=== PATIENT | female | born 1995 | race Caucasian/White ===

== ENCOUNTER 2023-09-06 17:18 | Observation (INO) | payer OTHER, SELFPAY ==
[2023-09-06 17:36] VITALS: BP 114/64
[2023-09-06 18:01] LABS: Urine Albumin Negative (Neg - Trace); Urine Bilirubin Negative (Negative); Urine Character Clear (Clear); Urine Color Yellow; Urine Glucose 1+ (Negative); Urine Ketone Trace (Negative); Urine Leukocyte Trace (Negative); Urine Nitrite Negative (Negative); Urine Occult Blood Trace (Negative); Urine Specific Gravity 1.015 (<1.030); Urine Urobilinogen Negative (Neg - 1+)
[2023-09-06 18:07] LABS: Urine Red Blood Cell 0-2 /HPF (0-2); Urine Squamous Cell >30 /LPF (Few)
== END 2023-09-06 18:29 | disposition home or self-care (01) ==
LOC: LDRP 17:18
PROVIDERS: ADMITTING PHYSICIAN Obstetrics & Gynecology; FAMILY PHYSICIAN Obstetrics & Gynecology
DX: O47.03 False labor before 37 completed weeks of gestation, third trimester (principal); Z3A.33 33 weeks gestation of pregnancy; Q21.12 Patent foramen ovale; O26.643 Intrahepatic cholestasis of pregnancy, third trimester; K83.1 Obstruction of bile duct; E86.0 Dehydration; Z91.018 Allergy to other foods; Z91.010 Allergy to peanuts; Z91.013 Allergy to seafood
CPT/HCPCS: 81003; 81015; G0378

== ENCOUNTER → 2023-09-11 09:26 | Outpatient (REF) | payer OTHER, SELFPAY | LOC: PNTC 09:26 | PROVIDERS: ATTENDING PHYSICIAN Obstetrics & Gynecology | DX: O26.649 Intrahepatic cholestasis of pregnancy, unspecified trimester (principal) | CPT/HCPCS: 59025; 76815 ==

== ENCOUNTER 2023-09-15 14:27 | Observation (INO) | payer OTHER, SELFPAY ==
[2023-09-15 11:51] VITALS: BP 131/73
[2023-09-15 12:40] VITALS: BMI 36.1
[2023-09-15 12:54] LABS: % Basophils 0.2 % (0-2); % Eosinophils 0.5 % (0-6); % Immature Granulocytes 0.8 % (0-0.5); % Lymphocytes 17.8 % (20.5-51.1); % Monocytes 9.5 % (1.7-9.3); % Neutrophils 71.2 % (42.2-75.2); Absolute Eosinophils 0.1 10^3/uL (0-0.7); Absolute Immature Granulocytes 0.1 10^3/uL (0-0.05); Absolute Lymphocytes 2.3 10^3/uL (1.2-3.4); Absolute Monocytes 1.2 10^3/uL (0.1-0.6); Absolute Neutrophils 9.3 10^3/uL (1.4-6.5); Hematocrit 31.9 % (37.0-47.0); Hemoglobin 10.4 g/dL (12.0-16.0); Mean Corp Hgb Conc. 32.6 g/dL (33.0-37.0); Mean Corpuscular Hgb 28.7 pg (27.0-31.0); Mean Corpuscular Volume 88.1 fL (81.0-99.0); Mean Platelet Volume 10.8 fL (7.4-10.4); Nucleated Red Blood Cells % 0 %; Platelet Count 347 10^3/uL (130-400); Red Blood Cell Count 3.62 10^6/uL (4.20-5.40); Red Cell Dist. Width 13.8 % (11.5-14.5)
[2023-09-15 13:00] VITALS: BP 105/69
[2023-09-15 13:05] LABS: ALT (SGPT) 27 U/L (0-35); AST (SGOT) 21 U/L (14-36); Albumin 3.5 g/dl (3.5-5.0); Alkaline Phosphatase 144 U/L (38-126); Blood Urea Nitrogen 5 mg/dl (7-17); Carbon Dioxide 22 mmol/L (22-30); Chloride 106 mmol/L (98-107); Estimated Creatinine Clearance > 125 ml/min; Glucose 89 mg/dl (70-99); Potassium 4.2 mmol/L (3.5-5.1); Sodium 133 mmol/L (135-145); Total Bilirubin 0.3 mg/dl (0.2-1.3); Total Protein 6.3 g/dl (6.3-8.2); eGFR > 60.00
--- NOTE | 2023-09-15 13:05 | ED.GENMED ---
History of Present Illness
General
Chief Complaint: Breathing Problem
Source: patient
Time Seen by Provider: 09/15/23 13:02
Travel History
Have you had any contact with someone who has COVID-19?: No
Do you have any symptoms of coronavirus? Fever > 100 degrees, chills, cough, shortness of breath, sore throat, loss of taste or smell, muscle aches, or headache?: No
History of Present Illness
History of Present Illness:
28-year-old female who is 35 weeks presents to the emergency room at the advice of her rehabilitation team lead, Dr. Khan. 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
noted increased edema in her lower extremities. Coworkers felt the patient looked pale. Patient's mom picked her up from work and then noted she seemed blotchy and red. Currently the patient is feeling much better. She is not short of breath.
She denies any pain with deep inspiration. Patient notes she has been experiencing cholestasis of .
Past History
Past History
ED Past Medical History: None
ED Past Surgical History: Tonsilectomy
Social History
Tobacco: Non-smoker
Alcohol: Occasional
Drug: None
Personal:
Living: with family
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
Phy Exam
Physical Exam
Physical Exam:
General: Awake, Alert, Oriented X3. No acute distress.
Vitals: unremarkable
Head: Atraumatic
Eyes: Pupils equal, EOMI
Throat: Airway intact, no exudates
Neck: Trachea midline
Lungs: Clear and equal b/l
Heart: Regular rate, no murmurs
Abd: Soft, Nontender, No pulsatile mass
Neuro: Nonfocal
Skin: Warm, dry, no rash
Extremities: pulses equal b/l, 1+ edema
Course
Orders/Labs/Results
Orders:
Orders
09/15/23 11:57
EKG [Electrocardiogram (*1)] Urgent
Reason for Study: Shortness of Breath
EKG- Treatment ONCE
09/15/23 12:44
Complete Blood Count/With Diff Urgent
Comprehensive Metabolic Panel Urgent
Troponin I Urgent
Uric Acid Urgent
Comment: URIC ACID ADDED ON BY FLOO 1PM 09-15-23
09/15/23 13:05
Add On- LAB Urgent
Tests Added?: uric acid
09/15/23 13:27
Urinalysis Urgent
Date Specimen was Collected: 09/15/23
Time Specimen was Collected: 13:11
09/15/23 13:30
Heart Tones ONCE
Abnormal Lab Results
09/15/23
12:44
WBC 13.0 H 10^3/uL
(4.8-10.8)
RBC 3.62 L 10^6/uL
(4.20-5.40)
Hgb 10.4 L g/dL
(12.0-16.0)
Hct 31.9 L %
(37.0-47.0)
MCHC 32.6 L g/dL
(33.0-37.0)
MPV 10.8 H fL
(7.4-10.4)
Abs Immat Gran (auto) 0.1 H 10^3/uL
(0-0.05)
Absolute Neuts (auto) 9.3 H 10^3/uL
(1.4-6.5)
Absolute Monos (auto) 1.2 H 10^3/uL
(0.1-0.6)
Immature Gran % 0.8 H %
(0-0.5)
Lymphocytes % 17.8 L %
(20.5-51.1)
Monocytes % 9.5 H %
(1.7-9.3)
Sodium 133 L mmol/L
(135-145)
BUN 5 L mg/dl
(7-17)
Creatinine 0.4 L mg/dL
(0.6-1.0)
Alkaline Phosphatase 144 H U/L
(38-126)
09/15/23 12:44
09/15/23 12:44
Vital Signs
Initial and Last Documented VS:
Initial Vital Signs
Temp Pulse Resp BP Pulse Ox
98.1 F 99 20 131/73 99
09/15/23 11:51 09/15/23 11:51 09/15/23 11:51 09/15/23 11:51 09/15/23 11:51
Last Documented Vital Signs
Temp Pulse Resp BP Pulse Ox
97.5 F 92 18 107/60 97
09/15/23 14:33 09/15/23 14:33 09/15/23 14:33 09/15/23 14:33 09/15/23 14:00
MDM/Problems Addressed
Differential Diagnosis Includes:
Preeclampsia shortness of breath , anemia, PE,
MDM/Problems Addressed:
Labs are all reassuring. Initial BP was elevated but repeat is normal. heart tones are normal. Case discussed with Dr. Fried. Patient will go to L&D for nonstress test.
*Pulse Oximetry
Patient hypoxic: no
*EKG
Interpreted by ED Provider?: Yes
Interpretation: normal
Heart Rate: 93
Rate: normal
Rhythm: sinus
[place]: normal axis
Interval: normal interval
QRS Pattern: normal QRS
Ischemia: no ischemia
*Rouge Presser Interpretation
Rate: normal
Interpretation: normal
Heart Rate: 93
Rhythm: sinus
*Critical Care Note
Total Time (30-74mins, 75-104mins- exclusive of procedures): Not Applicable
ED Attending Note
-
Portions of this chart may have been created with voice recognition software.� Occasional wrong word or��sound alike� substitutions may have occurred due to the inherent limitations of voice recognition software.
Discharge Plan
Departure
Patient Disposition: LDRP
Date of Disposition: 09/15/23
Time of Disposition: 14:11
Presentation/result/management discussed w/ accepting MD/DO: Hospitalist
Condition: Good
Discharge Problem:
Dyspnea
Interventions
Interventions:
*Risk Screen - Suicide Last Done: 09/15/23 11:51
*General Assessment Last Done: 09/15/23 11:51
*Neglect/Abuse Screening Last Done: 09/15/23 11:51
ED- Fall Risk Assessment Last Done: 09/15/23 12:40
*ED COVID-19 Vaccine History Last Done: 09/15/23 12:40
*Nursing Disposition Last Done: 09/15/23 14:27
ED- Cardiac Assessment Last Done: 09/15/23 12:40
ED- Pulmonary Assessment Last Done: 09/15/23 12:40
Discharge Date and Time
Discharge Date/Time: 09/15/23 14:28
[2023-09-15 13:17] LABS: Troponin I < 0.012 ng/ml
--- NOTE | 2023-09-15 13:23 | EDRN ---
heart tones checked and HR 135
[2023-09-15 13:27] VITALS: BP 114/72
[2023-09-15 13:40] LABS: Urine Albumin Negative (Neg - Trace); Urine Bilirubin Negative (Negative); Urine Character Clear (Clear); Urine Color Yellow; Urine Glucose Negative (Negative); Urine Ketone Negative (Negative); Urine Leukocyte Negative (Negative); Urine Nitrite Negative (Negative); Urine Occult Blood Negative (Negative); Urine Specific Gravity 1.015 (<1.030); Urine Urobilinogen Negative (Neg - 1+); Urine pH 6.5 (5.0-9.0)
[2023-09-15 13:57] LABS: Uric Acid 3.5 mg/dl (2.5-6.2)
[2023-09-15 14:00] VITALS: BP 105/68
[2023-09-15 14:33] VITALS: BP 107/60
== END 2023-09-15 15:22 | disposition home or self-care (01) ==
LOC: LDRP 14:27
PROVIDERS: Student in an Organized Health Care Education/Training Program; ADMITTING PHYSICIAN Obstetrics & Gynecology; EMERGENCY PHYSICIAN Emergency Medicine
DX: R06.00 Dyspnea, unspecified (principal); R06.02 Shortness of breath; Z3A.35 35 weeks gestation of pregnancy; O26.813 Pregnancy related exhaustion and fatigue, third trimester; O14.03 Mild to moderate pre-eclampsia, third trimester; Q21.12 Patent foramen ovale; O26.643 Intrahepatic cholestasis of pregnancy, third trimester; Z91.018 Allergy to other foods; Z91.010 Allergy to peanuts; Z91.013 Allergy to seafood
CPT/HCPCS: 80053; 81003; 84484; 84550; 85025; 93005; 99285; G0378

== ENCOUNTER 2023-09-17 09:28 | Inpatient (IN) | payer OTHER, SELFPAY ==
[2023-09-17 09:41] VITALS: BP 127/67; BMI 36.1
[2023-09-17] MEDS: PENICILLIN 110 UNITS IV (10:40)
[2023-09-17] MEDS: CELESTONE SOLUSPAN 2 MG IM ×2 (10:43→23:03)
[2023-09-17] MEDS: LR 1000 IV ×2 (11:06→16:24)
[2023-09-17 11:12] LABS: % Basophils 0.3 % (0-2); % Eosinophils 0.4 % (0-6); % Immature Granulocytes 0.8 % (0-0.5); % Lymphocytes 14.8 % (20.5-51.1); % Monocytes 7.8 % (1.7-9.3); % Neutrophils 75.9 % (42.2-75.2); Absolute Basophils 0.1 10^3/uL (0-0.2); Absolute Eosinophils 0.1 10^3/uL (0-0.7); Absolute Immature Granulocytes 0.1 10^3/uL (0-0.05); Absolute Lymphocytes 2.1 10^3/uL (1.2-3.4); Absolute Monocytes 1.1 10^3/uL (0.1-0.6); Hemoglobin 11.2 g/dL (12.0-16.0); Mean Corp Hgb Conc. 32.9 g/dL (33.0-37.0); Mean Corpuscular Hgb 28.6 pg (27.0-31.0); Mean Platelet Volume 11.3 fL (7.4-10.4); Nucleated Red Blood Cells % 0 %; Platelet Count 333 10^3/uL (130-400); Red Blood Cell Count 3.91 10^6/uL (4.20-5.40); Red Cell Dist. Width 13.9 % (11.5-14.5); White Blood Cell Count 14.5 10^3/uL (4.8-10.8)
[2023-09-17] MEDS: CYTOTEC 50 MICROGRAM VAG (11:29)
[2023-09-17] MEDS: PENICILLIN 55 UNITS IV ×3 (14:15→22:10)
--- NOTE | 2023-09-17 18:19 | CON.NEO ---
Consultation
-
Date/Time Consultation Requested: 09/17 899
Date/Time Consultation Performed: 09/17 1400
Requesting Provider: dr Herron
Performing Provider: dr villegas
Reason for Consultation: labour
Consultation - Neonatology
Maternal Labs
Blood Type: A Positive
Antibody Screen: Negative
RPR: Nonreactive
Rubella: Immune
Hep B S Ag: Negative
Hep C: Negative
HIV: Nonreactive
Group B Strep: Unknown
Chlamydia/GC: Negative
Consult
Mom 28 year old , unremarkable pregnacy uptil now except for cholestasis, previous induced at 37 wks for above reason
admitted this am with SROM at 2100 09/16.
she is 35 3/7 wks today
has been started on PCN and received one dose of Betametasone , no maternal fever or other concerns noted at this time.
Points discussed at consult:
- Management at delivery including the possibility of CPAP/intubation/surfactant discussed
- Respiratory: RDS possibility with possibility of worsening for 24-48 hrs, management including CPAP/surfactant/ventilator support may be required
- Nutrition: Hypoglycemia, need for IV fluids, gradual feed advance, Gavage feeding, importance of colostrum feeding, initiation of expression of colostrum within 3-4 hours, availability of donor milk, safety fo donor milk etc. were discussed.
- Procedures: Intubation, CPAP, IV placement, blood tests, umbilical arterial or venous lines, gavage feedings were discussed
- CVS: possibility of PDA not discussed in detail at this time
- TOOL REPAIR TECHNICIAN: Rare possibility of IVH and need for head US, grading of IVH and buttermaker effects of Grade III/IV although extremely rare at >32 weeks were discussed
- Jaundice possibility and need for phototherapy discussed
- Family Centered Care: Discussed FCC with emphasis on parental participation during sign off and during management rounds and is encouraged. Availability of hernán eyes camera also discussed
- COVID-19: Visitation policy, modifications related to COVID-19, ever changing guidelines were discussed
Mom and Grand mother were given the opportunity to ask questions throughout and open invitation to call if any questions come as they absorb all the information given so far.
discussed the need of donor Breast milk, mom wants to breast eed and will start hand expressing to have some avilibility at .
Face to Face Time
Total Twtn-lr-Kkam Time (in Minutes): 30 min
Attending Loan Teller: Cleopatra Villegas MD
Loan Teller
[2023-09-17] MEDS: PITOCIN 30 UNITS/NSS 500 ML IV (18:30)
[2023-09-17] MEDS: SUBLIMAZE 100 MCG EPIDURAL (19:52)
[2023-09-17] MEDS: FENTANYL/BUPIVACAINE 100 EPIDURAL (19:53)
[2023-09-18] MEDS: PENICILLIN 55 UNITS IV ×2 (02:10→06:16)
[2023-09-18] MEDS: FENTANYL/BUPIVACAINE 100 EPIDURAL (03:32)
[2023-09-18] MEDS: PENICILLIN IV (12:27)
[2023-09-18] MEDS: MOTRIN 600 MG PO ×2 (13:43→19:46)
[2023-09-19] MEDS: MOTRIN 600 MG PO ×4 (03:45→21:52)
[2023-09-19 04:02] LABS: Hematocrit 27.6 % (37.0-47.0); Hemoglobin 9.2 g/dL (12.0-16.0)
[2023-09-19] MEDS: PROTONIX 40 MG PO (07:30)
[2023-09-19] MEDS: PRENATAL PLUS 1 TABLET PO (07:30)
[2023-09-19] MEDS: HYDROCORTISONE 2.5% OINTMENT 1 APPLIC TOPICAL ×2 (09:22→22:04)
[2023-09-19] MEDS: TYLENOL 650 MG PO ×2 (09:36→15:45)
[2023-09-19] MEDS: SENOKOT-S 1 TABLET PO (09:37)
[2023-09-19 13:41] LABS: Syphilis/T. pallidum Ab Reflex Negative (Negative)
[2023-09-19] MEDS: FEOSOL 325 MG PO ×2 (15:44→21:53)
[2023-09-20] MEDS: MOTRIN 600 MG PO (08:50)
[2023-09-20] MEDS: FEOSOL 325 MG PO (08:50)
[2023-09-20] MEDS: PRENATAL PLUS 1 TABLET PO (08:50)
[2023-09-20] MEDS: SENOKOT-S 1 TABLET PO (08:50)
[2023-09-20] MEDS: PROTONIX PO (08:57)
== END 2023-09-20 18:33 | disposition home or self-care (01) | DRG 807 ==
LOC: LDRP 09:28
PROVIDERS: Obstetrics & Gynecology; ADMITTING PHYSICIAN Obstetrics & Gynecology
PROC: 3E0E3GC Introduction of Other Therapeutic Substance into Products of Conception, Percutaneous Approach (ICD-10-PCS; 2023-09-18)
PROC: 10E0XZZ Delivery of Products of Conception, External Approach (ICD-10-PCS; 2023-09-18)
DX: O60.14X0 Preterm labor third trimester with preterm delivery third trimester, not applicable or unspecified (principal); Z37.0 Single live birth; Z3A.35 35 weeks gestation of pregnancy; O69.81X0 Labor and delivery complicated by cord around neck, without compression, not applicable or unspecified
CPT/HCPCS: 88307; 85014; 85018; 85025; 86780; 86850; 86900; 86901; 87070

== ENCOUNTER → 2023-11-20 14:03 | Outpatient (REF) | payer OTHER, SELFPAY | LOC: WDC 14:03 | PROVIDERS: ATTENDING PHYSICIAN Nurse Practitioner Family | DX: N61.1 Abscess of the breast and nipple (principal) | CPT/HCPCS: 76642 ==

== ENCOUNTER → 2024-02-19 16:29 | Outpatient (REF) | payer OTHER, SELFPAY | LOC: RAD 16:29 | PROVIDERS: ATTENDING PHYSICIAN Nurse Practitioner Family | DX: N92.0 Excessive and frequent menstruation with regular cycle (principal) | CPT/HCPCS: 76830; 76856 ==

== ENCOUNTER 2024-05-25 11:48 | Emergency (ER) | payer OTHER, SELFPAY ==
[2024-05-25 11:51] VITALS: BP 126/81
[2024-05-25] MEDS: OMNIPAQUE 50 ML PO (13:45)
--- NOTE | 2024-05-25 13:48 | ED.GENMED ---
History of Present Illness
<Debby Begum PA-C - Last Filed: 05/27/24 19:03>
General
Chief Complaint: Bowel Problem
Source: patient
Exam Limitations: none
Time Seen by Provider: 05/25/24 13:13
Nursing documentation reviewed up to this point in time: agreed with
History of Present Illness
History of Present Illness:
29 y/o F with h/o hypothyroid
here with constipation x 17 days
says she normally moves bowels every few days but went 8 days the first stint, despite trying mrialax, doculax, colace, and mag citrate; andry did move bowels after enema and then went 7 days and has not had another BM desptie doing miralax
daily
she saw PCP who ordered xray which showed consitpation
she also saw [facility] and is scheudled to have colonosocopy in 5 days
but in the meantime, she developed pretty intense pain at work today in lower abdomen and had been instructed to come to the ER if she had pain
pain is better
no fever/chills/voimting/nausea/diarrhea/bleeding
last dose miralax this morning
doesn't feel rectal pressure
no recent change to diet
no previous abd surgery
Scheduled to have a hysterectomy because of adenomyosis and endometriosis
Thyroid normal, checked last week
Past History
<Debby Begum PA-C - Last Filed: 05/27/24 19:03>
Past History
ED Past Medical History: Other (adenomyosis, endometriosis)
ED Past Surgical History: Tonsilectomy
Social History
Tobacco: Non-smoker
Alcohol: Occasional
Drug: None
Personal:
Living: with family
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
Review of Systems
<Debby Begum PA-C - Last Filed: 05/27/24 19:03>
Review of Systems
Allergies reviewed?: Yes
All Other Systems: Not applicable
Phy Exam
<Debby Begum PA-C - Last Filed: 05/27/24 19:03>
Physical Exam
Physical Exam:
GENERAL: Alert , in no apparent distress
EYE: pupils equal and reactive
NECK: Supple
ENT: o/p clr, mmm.
CARDIAC: Regular rate and rhythm
LUNGS: Clear breath sounds bilaterally, no acute respiratory distress, no wheezes/rales/rhonchi
ABDOMEN: Soft, mild lower abd tenderness;, no r/g, no cvat, normal bowel sounds
NEUROLOGICAL: Alert and oriented, no focal neuro deficits
SKIN: Warm and dry, skin intact.
MUSCULOSKELETAL: No edema, well perfused.
PSYCH: Normal and appropriate interaction.
Course
<Debby Begum PA-C - Last Filed: 05/27/24 19:03>
Orders/Labs/Results
Orders:
Orders
05/25/24 13:38
Iohexol [Omnipaque] 50 ml .ROUTE .[facility]
05/25/24 13:39
Iohexol [Omnipaque] See Protocol PO NOW STA
05/25/24 13:40
CT Abd/pel W Iv And Oral Contr Urgent
Comment:
Reason For Exam: severe constipation
Test Result ONCE
05/25/24 13:51
Complete Blood Count/With Diff Urgent
Comprehensive Metabolic Panel Urgent
HCG, Serum Qualitative Screen Urgent
Lipase Urgent
Abnormal Lab Results
05/25/24
13:51
RBC 4.14 L 10^6/uL
(4.20-5.40)
Absolute Monos (auto) 0.7 H 10^3/uL
(0.1-0.6)
05/25/24 13:51
05/25/24 13:51
Vital Signs
Initial and Last Documented VS:
Initial Vital Signs
Temp Pulse Resp BP Pulse Ox
98.0 F 77 20 126/81 99
05/25/24 11:51 05/25/24 11:51 05/25/24 11:51 05/25/24 11:51 05/25/24 11:51
Last Documented Vital Signs
Temp Pulse Resp BP Pulse Ox
98.0 F 69 14 104/61 98
05/25/24 11:51 05/25/24 17:46 05/25/24 17:46 05/25/24 17:16 05/25/24 17:46
<Ruddy Jimenez PA-C - Last Filed: 05/25/24 17:28>
Orders/Labs/Results
Orders:
Orders
05/25/24 13:38
Iohexol [Omnipaque] 50 ml .ROUTE .[facility]
05/25/24 13:39
Iohexol [Omnipaque] See Protocol PO NOW STA
05/25/24 13:40
CT Abd/pel W Iv And Oral Contr Urgent
Comment:
Reason For Exam: severe constipation
Test Result ONCE
05/25/24 13:51
Complete Blood Count/With Diff Urgent
Comprehensive Metabolic Panel Urgent
HCG, Serum Qualitative Screen Urgent
Lipase Urgent
Abnormal Lab Results
05/25/24
13:51
RBC 4.14 L 10^6/uL
(4.20-5.40)
Absolute Monos (auto) 0.7 H 10^3/uL
(0.1-0.6)
05/25/24 13:51
05/25/24 13:51
Vital Signs
Initial and Last Documented VS:
Initial Vital Signs
Temp Pulse Resp BP Pulse Ox
98.0 F 77 20 126/81 99
05/25/24 11:51 05/25/24 11:51 05/25/24 11:51 05/25/24 11:51 05/25/24 11:51
Last Documented Vital Signs
Temp Pulse Resp BP Pulse Ox
98.0 F 69 14 104/61 98
05/25/24 11:51 05/25/24 17:46 05/25/24 17:46 05/25/24 17:16 05/25/24 17:46
<Debby Begum PA-C - Last Filed: 05/27/24 19:03>
MDM/Problems Addressed
Differential Diagnosis Includes:
constipation, bowel obstruction, colitis
MDM/Problems Addressed:
29 y/o F
adenomyosis, endometriosis
no BM in 7 days
has had consitpaiton x 17days but had bm in the middle
has tried miralax daiy for the pat week with no bm
she doesnt feel rectal rpessure
no nausea/vomiting
but got pain today that was intense
it resolved and pt feels better now but is mnimally sore
no fever/chills
pt is here for ct scan saying she was told if she got severe pain to come to the ER by the GI doctor
mild tenderness lower abd
has had tsh checked last week normal
labs normal
ct penidng
signed out to balaji sheikh at 1600
<Ruddy Jimenez PA-C - Last Filed: 05/25/24 17:28>
*Critical Care Note
Total Time (30-74mins, 75-104mins- exclusive of procedures): Not Applicable
<Ruddy Jimenez PA-C - Last Filed: 05/25/24 17:28>
Update Note
Update Note:
5:27 PM. Assumed care of patient upon signout pending CT scan of abdomen. CT shows large amount of stool throughout the colon to suggest constipation.
Patient reexamined appears nontoxic vital signs remained stable resting comfortably. Had discussion with patient regarding CAT scan results. Recommended increasing to MiraLAX twice a day. Was prescribed. She will follow-up with GI. No
indication for admission
ED Attending Note
<Debby Begum PA-C - Last Filed: 05/27/24 19:03>
-
Portions of this chart may have been created with voice recognition software.� Occasional wrong word or��sound alike� substitutions may have occurred due to the inherent limitations of voice recognition software.
Discharge Plan
Departure
Patient Disposition: Home (Routine Discharge)
Date of Disposition: 05/25/24
Time of Disposition: 17:22
Patient with high blood pressure during this ER visit?: No
Condition: Fair
Covid-19: Not Applicable
Discharge Problem:
Constipation
Instructions: Constipation, Adult (DC)
Prescriptions:
New
dicyclomine 20 mg tablet
20 mg PO TID PRN (Reason: pain) Qty: 15 0RF
No Action
Vitamin Tablet
1 tab PO DAILY
omeprazole 20 mg Capsule,Delayed Release(Dr/Ec)
20 mg PO DAILY
ferrous sulfate [FeroSul] 325 mg (65 mg iron) Tablet
325 mg PO DAILY Qty: 0 0RF
ibuprofen 200 mg capsule
600 mg PO Q6HPRN PRN (Reason: moderate pain/cramps) Qty: 0 0RF
acetaminophen 325 mg Tablet
650 mg PO Q4HPRN PRN (Reason: mild pain) Qty: 0 0RF
sennosides-docusate sodium [Stool Softener-Stimulant Laxat] 8.6-50 mg Tablet
1 tab PO DAILYPRN PRN (Reason: constipation) Qty: 0 0RF
Referrals:
Shelley Ch, [Family Provider] - Follow up in 2-3 days
Activity Restrictions/Additional Instructions:
FOLLOW UP WITH YOUR GI DOCTOR
USE BENTYL 20 MG 3 TIMES A DAY NEEDED FOR PAIN RELATED TO CONSTIPATION
USE MIRALAX TWICE A DAY TO SEE IF THIS HELPS GIVE YOU RESULTS
ALSO TRY AN ENEMA
RETURN FOR ANY CONCERNS.
Interventions
Interventions:
*Risk Screen - Suicide Last Done: 05/25/24 13:58
*General Assessment Last Done: 05/25/24 11:51
*Neglect/Abuse Screening Last Done: 05/25/24 13:58
ED- Fall Risk Assessment Last Done: 05/25/24 13:58
*ED COVID-19 Vaccine History Last Done: 05/25/24 14:47
*Nursing Disposition Last Done: 05/25/24 17:46
GO-Yqzcfb-Pspjoxhwmt Assessment Last Done: 05/25/24 14:47
Discharge Date and Time
Discharge Date/Time: 05/25/24 17:47
Print Language: MICRONESIAN
[2024-05-25 14:01] LABS: % Basophils 0.6 % (0-2); % Immature Granulocytes 0.1 % (0-0.5); % Lymphocytes 36.3 % (20.5-51.1); % Monocytes 8.6 % (1.7-9.3); % Neutrophils 53.4 % (42.2-75.2); Absolute Basophils 0.1 10^3/uL (0-0.2); Absolute Eosinophils 0.1 10^3/uL (0-0.7); Absolute Lymphocytes 2.9 10^3/uL (1.2-3.4); Absolute Monocytes 0.7 10^3/uL (0.1-0.6); Absolute Neutrophils 4.3 10^3/uL (1.4-6.5); Hematocrit 37.1 % (37.0-47.0); Hemoglobin 12.4 g/dL (12.0-16.0); Mean Corp Hgb Conc. 33.4 g/dL (33.0-37.0); Mean Corpuscular Volume 89.6 fL (81.0-99.0); Mean Platelet Volume 10.4 fL (7.4-10.4); Nucleated Red Blood Cells % 0 %; Platelet Count 323 10^3/uL (130-400); Red Blood Cell Count 4.14 10^6/uL (4.20-5.40); Red Cell Dist. Width 13.2 % (11.5-14.5)
[2024-05-25 14:11] LABS: ALT (SGPT) 14 U/L (0-35); AST (SGOT) 19 U/L (14-36); Albumin 4.3 g/dl (3.5-5.0); Alkaline Phosphatase 40 U/L (38-126); Blood Urea Nitrogen 12 mg/dl (7-17); Calcium 9.6 mg/dl (8.4-10.2); Carbon Dioxide 27 mmol/L (22-30); Chloride 106 mmol/L (98-107); Glucose 89 mg/dl (70-99); Lipase 49 U/L (23-300); Sodium 141 mmol/L (135-145); Total Bilirubin 0.3 mg/dl (0.2-1.3); Total Protein 6.8 g/dl (6.3-8.2); eGFR > 60.00
[2024-05-25 14:13] LABS: HCG, Serum Qualitative Screen Negative
[2024-05-25 14:22] VITALS: BP 117/70
[2024-05-25 14:47] VITALS: BMI 30.5
[2024-05-25 15:00] VITALS: BP 104/69
[2024-05-25 17:16] VITALS: BP 104/61
== END 2024-05-25 17:47 | disposition home or self-care (01) ==
LOC: EMR 11:48
PROVIDERS: Physician Assistant; EMERGENCY PHYSICIAN Emergency Medicine; FAMILY PHYSICIAN Family Medicine
DX: K59.00 Constipation, unspecified (principal); E03.9 Hypothyroidism, unspecified
CPT/HCPCS: 99284; 74177; 80053; 83690; 84703; 85025; Q9967

== ENCOUNTER → 2024-07-22 13:19 | Outpatient (REF) | payer OTHER, SELFPAY | LOC: HWRAD 13:19 | PROVIDERS: ATTENDING PHYSICIAN Obstetrics & Gynecology Gynecologic Oncology; FAMILY PHYSICIAN Family Medicine; REFERRING PHYSICIAN Surgery | DX: Z15.01 Genetic susceptibility to malignant neoplasm of breast (principal); C44.92 Squamous cell carcinoma of skin, unspecified; N80.03 Adenomyosis of the uterus; Z15.02 Genetic susceptibility to malignant neoplasm of ovary | CPT/HCPCS: 76830; 76856 ==

== ENCOUNTER → 2024-08-15 10:44 | Outpatient (REF) | payer OTHER, SELFPAY | LOC: MRI 3T 10:44 | PROVIDERS: ATTENDING PHYSICIAN Obstetrics & Gynecology Gynecologic Oncology; FAMILY PHYSICIAN Family Medicine | DX: R92.2 Inconclusive mammogram (principal); Z15.01 Genetic susceptibility to malignant neoplasm of breast; C44.92 Squamous cell carcinoma of skin, unspecified; N80.03 Adenomyosis of the uterus; Z15.02 Genetic susceptibility to malignant neoplasm of ovary | CPT/HCPCS: 77049; A9585 ==

== ENCOUNTER 2024-08-21 06:15 | Day surgery (SDC) | payer OTHER, SELFPAY ==
[2024-08-01 10:00] VITALS: BMI 28.5
[2024-08-01 11:53] LABS: Hematocrit 40.4 % (37.0-47.0); Hemoglobin 13.2 g/dL (12.0-16.0); Mean Corp Hgb Conc. 32.7 g/dL (33.0-37.0); Mean Corpuscular Hgb 30.5 pg (27.0-31.0); Mean Corpuscular Volume 93.3 fL (81.0-99.0); Platelet Count 294 10^3/uL (130-400); Red Blood Cell Count 4.33 10^6/uL (4.20-5.40); Red Cell Dist. Width 12.7 % (11.5-14.5); White Blood Cell Count 4.2 10^3/uL (4.8-10.8)
[2024-08-01 12:03] LABS: ALT (SGPT) 18 U/L (0-35); AST (SGOT) 23 U/L (14-36); Albumin 4.3 g/dl (3.5-5.0); Alkaline Phosphatase 45 U/L (38-126); Blood Urea Nitrogen 12 mg/dl (7-17); Calcium 8.9 mg/dl (8.4-10.2); Carbon Dioxide 25 mmol/L (22-30); Chloride 104 mmol/L (98-107); Estimated Creatinine Clearance 93 ml/min; Glucose 76 mg/dl (70-99); Potassium 4.4 mmol/L (3.5-5.1); Sodium 139 mmol/L (135-145); Total Bilirubin 0.2 mg/dl (0.2-1.3); eGFR > 60.00
[2024-08-01 13:24] LABS: Absolute Neutrophils -Man Diff 1.9 10^3/uL (1.4-6.5); Atypical Lymphocytes 4 %; Band Neutrophils 2 % (0-3); Lymphocytes 28 % (20-51); Metamyelocytes 1 % (-); Monocytes 20 % (2-9); Segmented Neutrophils 45 % (42-75)
[2024-08-01 13:25] LABS: Normal RBC Morphology Yes; Platelets Checked Yes; Total Cells Counted 100
[2024-08-21] VITALS (8 sets, daily range): BP systolic 101–117; BP diastolic 57–73; BMI 28.5
[2024-08-21] MEDS: TYLENOL 1000 MG PO (06:32)
[2024-08-21] MEDS: NORMOSOL-R/PLASMALYTE-A 1000 IV (06:38)
[2024-08-21 07:01] LABS: HCG, Urine Qualitative Screen Negative
--- NOTE | 2024-08-21 07:40 | W.SUR.PREOP ---
Pre-Operative Surgical Note
-
I have examined this patient prior to the performance of the scheduled procedure.
The patient's condition is unchanged from the time of the current History and
Physical and the patient is able to undergo the scheduled procedure.
--- NOTE | 2024-08-21 07:41 | W.IMMPOSTOP ---
Surgical Immed Post Op Note
-
Primary Surgeon: PRAVEEN Cortes MD
Assisting Surgeon:
Pre-op Diagnosis: BRCA positive
Post-op Diagnosis: Same
Procedure Performed: Bilateral mastopexy
Anesthesia Type: GA
Specimen / Cultures: Right and left breast tissue
Estimated Blood Loss: 30cc
Complications: None
Operative Findings: As expected
--- NOTE | 2024-08-21 07:41 | OR.RPT ---
Operative Report
Operative Report
Date of surgery: 08/21/2024
Surgeon: PRAVEEN Cortes MD
Preoperative diagnosis: Genetic predisposition to breast cancer, BRCA
Postoperative diagnosis: Same
Procedure: Bilateral mastopexy as a staged procedure for nipple sparing mastectomy
Anesthesia: General
Complications: None
Specimens: Right and left breast tissue
EBL: 30 cc
Indication for procedure: Patient is a 21-year-old female with a known genetic predisposition to breast cancer. She is planning to undergo bilateral nipple sparing mastectomy with immediate D IEP flap reconstruction. She has 2 kids and had
involutional changes and ptosis. She also had notable asymmetry of her bilateral breast. As such in order to improve her reconstructive outcome, assist staged mastopexy prior to a nipple sparing mastectomy is appropriate in both medically
necessary. This will allow her to safely undergo nipple sparing mastectomy and immediate D IEP flap recon in the future. Risk the procedure were reviewed at length including compromise nipple areolar complex, wound healing differences, asymmetry,
hematoma, seroma, infection. She is not breast-feeding.
Procedure in detail: Patient was identified preoperatively and the surgical site was confirmed to be the bilateral breast. Bilateral vertical plantar mastopexies were drawn out to achieve symmetry. Her right was larger and more ptotic than the
left. All questions were answered consents were confirmed. Patient was taken back to the operative room placed supine on table. Anesthesia was induced and patient was prepped and draped in the usual sterile fashion. Timeout for patient safety
was performed was confirmed that preoperative antibiotics been administered and bilateral SCDs were in place. Procedure began with the injection 1% lidocaine with epinephrine in the proposed incisional sites. A 42 mm cookie cutter was then used to
lisseth the nipple areolar complex bilaterally. A 15 blade was used to then incised all the markings and the epithelization was performed with a 10 blade. On the right, a vertical pattern mastopexy was performed with removal of the inferior wedge of
tissue as well as undermining of the medial and lateral aspects of the inframammary fold. The pillars were sutured back in place with 2-0 Vicryl's followed by 3-0 Monocryl's. The nipple was transposed superiorly and inset with a series of 3-0 and
4 Monocryl. Superficial closure was performed for all Monocryl. The exact same procedure was then performed on the left with removal of less tissue given this was the smaller side. The inframammary fold was undermined tissue was removed
accordingly but the wedge was spared and transposed superiorly. The pillars were put back together with 2-0 Vicryl and the nipple was inset with 3-0 Monocryl. 3-0 Monocryl and 4-0 Monocryl were used to close the superficial skin. Patient
tolerated the procedure well, was performed out complication, all counts were correct at the end the case. The wounds were dressed with bacitracin, dry gauze, Tegaderm and a compressive bra was placed. Patient was extubated taken the PACU for
further care
[2024-08-21] MEDS: DILAUDID 0.5 MG IV ×2 (10:35→10:48)
[2024-08-21] MEDS: ZOFRAN 4 MG IV (11:05)
[2024-08-21] MEDS: ROXICODONE 5 MG PO (12:35)
== END 2024-08-21 12:55 | disposition home or self-care (01) ==
LOC: SDS 06:15
PROVIDERS: ATTENDING PHYSICIAN Surgery Plastic and Reconstructive Surgery; FAMILY PHYSICIAN Family Medicine
DX: N64.89 Other specified disorders of breast (principal); Z15.01 Genetic susceptibility to malignant neoplasm of breast
CPT/HCPCS: 19316; 88305; 36415; 80053; 81025; 85025; 93005

== ENCOUNTER → 2024-10-25 15:24 | Outpatient (REF) | payer OTHER, SELFPAY | LOC: RAD 15:24 | PROVIDERS: ATTENDING PHYSICIAN Surgery Plastic and Reconstructive Surgery; FAMILY PHYSICIAN Family Medicine | DX: Z15.01 Genetic susceptibility to malignant neoplasm of breast (principal) | CPT/HCPCS: 74174; Q9967 ==

== ENCOUNTER 2024-11-06 06:09 | Inpatient (IN) | payer OTHER, SELFPAY ==
[2024-10-30 08:58] LABS: Hematocrit 41.2 % (37.0-47.0); Hemoglobin 13.4 g/dL (12.0-16.0); Mean Corp Hgb Conc. 32.5 g/dL (33.0-37.0); Mean Corpuscular Hgb 29.7 pg (27.0-31.0); Mean Corpuscular Volume 91.4 fL (81.0-99.0); Mean Platelet Volume 10.6 fL (7.4-10.4); Platelet Count 352 10^3/uL (130-400); Red Blood Cell Count 4.51 10^6/uL (4.20-5.40); Red Cell Dist. Width 12.8 % (11.5-14.5); White Blood Cell Count 10.1 10^3/uL (4.8-10.8)
[2024-10-30 09:33] LABS: ALT (SGPT) 11 U/L (0-35); AST (SGOT) 16 U/L (14-36); Albumin 4.7 g/dl (3.5-5.0); Alkaline Phosphatase 56 U/L (38-126); Blood Urea Nitrogen 13 mg/dl (7-17); Carbon Dioxide 29 mmol/L (22-30); Chloride 104 mmol/L (98-107); Glucose 87 mg/dl (70-99); Potassium 4.5 mmol/L (3.5-5.1); Sodium 142 mmol/L (135-145); Total Bilirubin 0.8 mg/dl (0.2-1.3); Total Protein 7.2 g/dl (6.3-8.2); eGFR > 60.00
[2024-10-30 13:53] LABS: Prealbumin (Transthyretin) 25.5 mg/dl (17.6-36.0)
[2024-10-30 14:03] VITALS: BMI 28.6
[2024-10-30 14:05] LABS: Vitamin D, 25-OH*** 32.1 ng/mL (30-80)
[2024-11-06] VITALS (19 sets, daily range): BP systolic 93–109; BP diastolic 56–68; BMI 28.6; BMI 28.5
[2024-11-06] MEDS: LOVENOX 40 MG SC (06:44)
[2024-11-06] MEDS: NORMOSOL-R/PLASMALYTE-A 1000 IV (06:45)
[2024-11-06] MEDS: EMEND 40 MG PO (06:58)
--- NOTE | 2024-11-06 16:05 | OR.RPT ---
Operative Report
Operative Report
[facility]
[address]*[place] [address]

Patient Name: BONG RAMÍREZ
: 05/13/1975
Unit Number: [id number]
Age: 49/Gender: F
Patient
Location: ICU
Medical Records
Signed
Date of procedure: 11/06/24
Pre-Op DX: Genetic predisposition to breast cancer
Post-Op DX: Genetic predispostion to breast cancer
Procedures: Bilateral nipple-sparing mastectomies, bilateral abdominal wall repairs with mesh
Surgeon: Cliff
The patient is a 29-year-old female with 2 genetic mutation variants predisposing her to breast carcinoma who presents for bilateral prophylactic nipple sparing mastectomies and immediate reconstruction with bilateral DENIS flaps to be performed by
plastic surgery and repair of bilateral abdominal wall defects to be repaired by myself. Drs. Cortes and Yasmin will be performing the reconstructive and microvascular portions of the procedure. mastectomies and the abdominal wall repairs. I was
present throughout the entire case and functioned as primary surgeon for the mastectomies and abdominal wall repairs.
abdominal wall reconstruction as the Plastic Surgeons are not credentialed in General Surgery.
The patient presented to same-day surgical services and verified site and procedure. DVT and antibiotic prophylaxis were provided and Dr. Cortes had marked the incisions on the abdomen and breasts. She was taken to the operating room and in the
supine position, general anesthesia was induced. Smith catheter was placed using aseptic technique. Chest abdomen upper pelvic regions were prepped and draped in the usual sterile fashion. An appropriate timeout was performed by all staff members.
Plastic surgeons began harvesting the abdominal wall flaps and I began on the right sided mastectomy. Patient had undergone a previous breast mastopexy to deal with ptosis and the existing vertical incision was incised and extended laterally and
medially in the inframammary fold using the blade. The PlasmaBlade and lighted Invuity retractor were used for the dissection. Breast skin was elevated off the underlying breast tissue. Larger vessels were controlled with 3-0 silk tie or suture
ligature. Breast tissue was taken off the chest wall in a superior to inferior direction. Time out of body and orientation was provided for the pathologist. Hemostasis was verified and a moist pack was placed in the resection cavity. In the same
manner, the left side was dissected and removed as well. Then I continued to assist the plastic surgeons and once the flaps were harvested from the abdominal wall the anterior rectus fascia was approximated with skin luis a loosely approximating
the anterior rectus fascia. A portion of Phasix mesh was fashioned for both sides measuring 15 x 3 cm. This was placed in a subfascial location and secured to the fascia using interrupted [id number]-bk-[id number] 0 PDS suture. This was overrun with an O
Stratafix. Bilateral tap blocks were administered using 0.25% Marcaine plain. The rest of the closure is as described in the plastic surgery operative note.
The remaining soft tissue and skin closure was performed as described in the Plastic Surgical dictation.
([id number])
--- NOTE | 2024-11-06 16:21 | OR.RPT ---
Operative Report
Operative Report
Surgeon: Kiran Hoffman MD
Co-surgeon: Shahida Cortes MD
Cardiac Exercise Physiologist: Estefanía Coronado MD
Pre-op diagnosis:
1.� Genetic Predisposition to breast cancer
2. 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
Postop diagnosis: Same
Procedure:
1.� Bilateral breast reconstruction with DENIS flaps
2.� Bilateral internal mammary lymph node biopsy
3. Spy Angiography
Anesthesia: General
EBL: 150 cc
Specimens:
1.� Right internal mammary lymph node
2. Left internal mammary lymph node
Drains: 4 - 15 [place] Billy drains
Complications: none
Indications:
29-year-old female with a significant family history of breast cancer and genetic mutations that increase her lifetime risk of developing breast cancer.� She therefore desired prophylactic mastectomies. She first underwent staged mastopexy a few
months ago to allow for a nipple sparing mastectomy. Now she is ready for her bilateral mastectomies. She was interested in moving forward with autologous reconstruction. Given the anticipated bilateral DENIS flap breast reconstruction, I was asked
to be involved in her care given the complexity of the case and the need for a second surgeon to do this as safely and efficiently as possible.
Regarding bilateral free flap breast reconstruction,� she understood the nature of the surgery and all of the risk benefits alternatives were discussed at length.� Specific risks included flap failure or thrombosis, hematoma, seroma, poor wound
healing and compromise to the abdominal wall.� All questions were answered and consents were signed.
Operative findings:
The patient was identified in the preoperative area and consents were confirmed. The bilateral breasts were marked out as was the elliptical infraumbilical donor site. All questions were answered. She was brought to the operating room and placed
supine on the operative table.� General anesthesia was induced with an endotracheal tube. The arms were tucked bilaterally and a Smith catheter was placed.� Preoperative Lovenox and antibiotics were administered, and SCDs were placed.� The patient's
bilateral breasts and abdomen were prepped and draped in normal standard fashion using chlorhexidine prep.� A timeout for patient safety was performed.
As the breast surgeon, Dr. Coronado, was performing the mastectomies, Dr. Cortes and I were in the abdomen dissecting the abdominal flaps. I dissected the right abdominal flap for left breast reconstruction and Dr. Cortes worked on the left abdomen
for right breast reconstruction. Dr. Cortes assisted me with my portions of the case, and I assisted him with his portions of the case. Please see Dr. Coronado and Dr. Cortes's separately dictated operative notes.
In the abdomen, bilateral DENIS flaps were dissected out. This began with incising the proposed markings superiorly and dissection with a slight bevel upwards to the level of the fascia. Undermining of the supraumbilical flap continue in the midline
above the umbilicus. Laterally, this extend near but not all the way to the costal margin. The patient was then flexed at the waist and the lower incision was confirmed to be tenable without undue tension. The patient was returned supine and the
lower marking was incised with a 10 blade. The flaps were then raised laterally to medially be sure to maintain the perforating vessels above the level of the fascia.� On the right side a 4 textile machine mechanic DENIS flap was dissected out.� Similarly on the
left side a 3 textile machine mechanic DENIS flap had been dissected out.�This involved a tedious intramuscular dissection to minimize the amount of muscle harvested with the flap. The pedicles were dissected down to level of the iliac vessels.
When Dr. Coronado was done with the mastectomies, I moved up to the chest for the mammary dissection. The muscle was split over the fourth intercostal rib and the cartilaginous portion of the rib was excised.� The underlying internal mammary vessels
were then meticulously and carefully dissected.� Once the vessels were fully dissected circumferentially these were allowed to dilate up while attention was turned to the contralateral breast.� A pectoralis block was then performed with marcaine and
a 15 [place] Billy drain was placed through a stab incision the lateral IMF.� This was secured using a 2-0 Prolene suture.
The identical procedure was then performed on the patient's right side.� Again this involved rib resection, and internal mammary vessel dissection.� These vessels were similarly prepared and allowed to dilate up with papaverine soaked neuro
patties.�The vessels were radiated on this side and required a more careful dissection. A pectoralis block was similarly performed on this side and a 15 [place] Billy drain was also placed through a stab incision in the lateral IMF on the side. Of
note, an internal mammary lymph node was noted on both sides. This was dissected out and sent off for pathologic evaluation.
The left hemiabdominal flap was then transferred up to the right chest first.� The microvascular anastomosis was then performed.� This was done using a 4.0mm electronic gaming device supervisor for the venous anastomosis.� The arterial anastomosis was performed with a handsewn
technique using 8-0 nylon suture.� Upon removal of the microvascular clamps there was excellent perfusion of the flap.� The flap was then temporarily inset with luis a and attention was turned to the contralateral side.
The right hemiabdominal flap was then transferred up to the left chest.� The microvascular anastomosis was similarly performed.� On this side a 3.5mm electronic gaming device supervisor was again utilized for the venous anastomosis.� The arterial anastomosis was performed in
the same fashion as the contralateral side.� Again there was excellent perfusion noted upon removal of the vascular clamps.
While one surgeon was performing the microvascular anastomosis the other surgeon was performing the abdominal wall reconstruction.� This involved reapproximation of the muscles that was divided.� A small piece of Phasix mesh was inset as a underlay
with primary fascial closure.� The fascia was closed with a PDS stratafix sutures.�A midline abdominal plication was also peformed due to the patient's rectus diastasis.
A TAP block was performed bilaterally for postoperative analgesia.� Two 15 [place] Billy drains were placed in the abdomen.� These were similarly secured using 2-0 Prolene sutures.� The abdominal wall was then closed in a layered fashion.� 2-0 Vicryl
suture was utilized in the Jeff's fascia.� The Insorb dermal stapler was then utilized for reapproximation of the deep dermis.� The superficial skin was then closed using 4-0 Monocryl suture.� The umbilicus was transposed.� This was inset using a
combination of 3-0 Monocryl in the deep dermis and 5-0 nylon suture superficially.
The DENIS flaps were then inset. The skin was then closed in a layered fashion using 3-0 and 4-0 Monocryl suture.� The DENIS flaps were de-epithelialized in all areas that would not be exposed prior to closure.
Doppler signals were identified and there was good punctate bleeding at time of deepithelialization. SPY angiography was also performed and revealed good perfusion of the flaps bilaterally.
The wounds were then all dressed and the patient was extubated uneventfully.� All counts were correct at the the completion of the case.� The patient tolerated the procedure very well.� She had an excellent cosmetic outcome.� The patient was then
transferred to the ICU for postoperative� monitoring.
Dr. Cortes and I were cosurgeons for this case. Functioning as cosurgeons was medically necessary to allow us to function as two separate teams, operating in separate surgical sites, and to maximize safety and efficiency for the patients.
Dr. Estefanía Coronado was our student assistant for this case.� Her assistance was critical and medically necessary to allow us to perform this in a safe and timely manner for this patient.� She assisted with retraction, execution, and closure of this case.
--- NOTE | 2024-11-06 16:25 | W.IMMPOSTOP ---
Surgical Immed Post Op Note
-
Primary Surgeon: Cliff
Assisting Surgeon: None
Pre-op Diagnosis: Genetic predisposition for breast cancer
Post-op Diagnosis: Genetic predisposition for breast cancer
Procedure Performed: Bilateral nipple-sparing mastectomies, repair bilateral abdominal wall defects with mesh
Anesthesia Type: GET
Specimen / Cultures: Bilateral breasts, internal mammary lymph nodes bilateral
Estimated Blood Loss: 150cc
Complications: None
Operative Findings: None
--- NOTE | 2024-11-06 16:48 | W.IMMPOSTOP ---
Surgical Immed Post Op Note
-
Primary Surgeon: PRAVEEN Cortes MD
Assisting Surgeon: Kiran Hoffman MD; Estefanía Coronado MD
Pre-op Diagnosis: Genetic susceptibility to breast cancer
Post-op Diagnosis: Same
Procedure Performed: Bilateral DENIS flap breast reconstruction after mastectomy
Anesthesia Type: General
Specimen / Cultures: Per Dr. Coronado
Estimated Blood Loss: 150 cc
Complications: None
Operative Findings: As expected, routine micro
--- NOTE | 2024-11-06 16:48 | OR.RPT ---
Operative Report
Operative Report
Date Of Surgery: 11/06/24
Surgeon: Shahida Cortes MD
Co-surgeon: Kiran Hoffman MD
Credit Card Control Clerk: Estefanía Coronado MD
Pre-op diagnosis:
1.� Genetic Predisposition to breast cancer
2. 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
Postop diagnosis: Same
Procedure:
1.� Bilateral breast reconstruction with DENIS flaps
2.� Bilateral internal mammary lymph node biopsy
3. Spy Angiography
Anesthesia: General
EBL: 150 cc
Specimens:
1.� Right internal mammary lymph node
2. Left internal mammary lymph node
Drains: 4 - 15 [place] Billy drains
Complications: none
Indications:
29-year-old female with a significant family history of breast cancer and genetic mutations that increase her lifetime risk of developing breast cancer.� She therefore desired prophylactic mastectomies. I performed a staged mastopexy three months
ago to allow for a nipple sparing mastectomy. Now she is ready for her bilateral mastectomies. She was interested in moving forward with autologous reconstruction. Given the anticipated bilateral DENIS flap breast reconstruction, I asked Dr. Hoffman to
be involved in her care given the complexity of the case and the need for a second surgeon to do this as safely and efficiently as possible.
Regarding bilateral free flap breast reconstruction,� she understood the nature of the surgery and all of the risk benefits alternatives were discussed at length.� Specific risks included flap failure or thrombosis, hematoma, seroma, poor wound
healing and compromise to the abdominal wall.� All questions were answered and consents were signed.
Operative findings:
The patient was identified in the preoperative area and consents were confirmed. The bilateral breasts were marked out as was the elliptical infraumbilical donor site. All questions were answered. She was brought to the operating room and placed
supine on the operative table.� General anesthesia was induced with an endotracheal tube. The arms were tucked bilaterally and a Smith catheter was placed.� Preoperative Lovenox and antibiotics were administered, and SCDs were placed.� The patient's
bilateral breasts and abdomen were prepped and draped in normal standard fashion using chlorhexidine prep.� A timeout for patient safety was performed.
As the breast surgeon, Dr. Coronado, was performing the mastectomies, Dr. Hoffman and I were in the abdomen dissecting the abdominal flaps. I dissected the left abdominal flap for right breast reconstruction and Dr. Hoffman worked on the right abdomen
for left breast reconstruction. Dr. Hoffman assisted me with my portions of the case, and I assisted him with his portions of the case. Please see Dr. Coronado and Dr. Hoffman's separately dictated operative notes.
In the abdomen, bilateral DENIS flaps were dissected out. This began with incising the proposed markings superiorly and dissection with a slight bevel upwards to the level of the fascia. Undermining of the supraumbilical flap continue in the midline
above the umbilicus. Laterally, this extend near but not all the way to the costal margin. The patient was then flexed at the waist and the lower incision was confirmed to be tenable without undue tension. The patient was returned supine and the
lower marking was incised with a 10 blade. The flaps were then raised laterally to medially be sure to maintain the perforating vessels above the level of the fascia.� On the right side a 4 lens cutter DENIS flap was dissected out.� Similarly on the
left side a 3 lens cutter DENIS flap had been dissected out.�This involved a tedious intramuscular dissection to minimize the amount of muscle harvested with the flap. The pedicles were dissected down to level of the iliac vessels.
When Dr. Coronado was done with the mastectomies, I moved up to the chest for the mammary dissection. The muscle was split over the fourth intercostal rib and the cartilaginous portion of the rib was excised.� The underlying internal mammary vessels
were then meticulously and carefully dissected.� Once the vessels were fully dissected circumferentially these were allowed to dilate up while attention was turned to the contralateral breast.� A pectoralis block was then performed with marcaine and
a 15 [place] Billy drain was placed through a stab incision the lateral IMF.� This was secured using a 2-0 Prolene suture.
The identical procedure was then performed on the patient's right side.� Again this involved rib resection, and internal mammary vessel dissection.� These vessels were similarly prepared and allowed to dilate up with papaverine soaked neuro
patties.�The vessels were radiated on this side and required a more careful dissection. A pectoralis block was similarly performed on this side and a 15 [place] Billy drain was also placed through a stab incision in the lateral IMF on the side. Of
note, an internal mammary lymph node was noted on both sides. This was dissected out and sent off for pathologic evaluation.
The left hemiabdominal flap was then transferred up to the right chest first.� The microvascular anastomosis was then performed.� This was done using a 4.0mm mill oiler for the venous anastomosis.� The arterial anastomosis was performed with a handsewn
technique using 8-0 nylon suture.� Upon removal of the microvascular clamps there was excellent perfusion of the flap.� The flap was then temporarily inset with luis a and attention was turned to the contralateral side.
The right hemiabdominal flap was then transferred up to the left chest.� The microvascular anastomosis was similarly performed.� On this side a 3.5mm mill oiler was again utilized for the venous anastomosis.� The arterial anastomosis was performed in
the same fashion as the contralateral side.� Again there was excellent perfusion noted upon removal of the vascular clamps.
While one surgeon was performing the microvascular anastomosis the other surgeon was performing the abdominal wall reconstruction.� This involved reapproximation of the muscles that was divided.� A small piece of Phasix mesh was inset as a underlay
with primary fascial closure.� The fascia was closed with a PDS stratafix sutures.�A midline abdominal plication was also peformed due to the patient's rectus diastasis.
A TAP block was performed bilaterally for postoperative analgesia.� Two 15 [place] Billy drains were placed in the abdomen.� These were similarly secured using 2-0 Prolene sutures.� The abdominal wall was then closed in a layered fashion.� 2-0 Vicryl
suture was utilized in the Jeff's fascia.� The Insorb dermal stapler was then utilized for reapproximation of the deep dermis.� The superficial skin was then closed using 4-0 Monocryl suture.� The umbilicus was transposed.� This was inset using a
combination of 3-0 Monocryl in the deep dermis and 5-0 nylon suture superficially.
The DENIS flaps were then inset. The skin was then closed in a layered fashion using 3-0 and 4-0 Monocryl suture.� The DENIS flaps were de-epithelialized in all areas that would not be exposed prior to closure.
Doppler signals were identified and there was good punctate bleeding at time of deepithelialization. SPY angiography was also performed and revealed good perfusion of the flaps bilaterally.
The wounds were then all dressed and the patient was extubated uneventfully.� All counts were correct at the the completion of the case.� The patient tolerated the procedure very well.� She had an excellent cosmetic outcome.� The patient was then
transferred to the ICU for postoperative� monitoring.
Dr. Hoffman and I were cosurgeons for this case. Functioning as cosurgeons was medically necessary to allow us to function as two separate teams, operating in separate surgical sites, and to maximize safety and efficiency for the patients.
Dr. Estefanía Coronado was our collections assistant for this case.� Her assistance was critical and medically necessary to allow us to perform this in a safe and timely manner for this patient.� She assisted with retraction, execution, and closure of this case.
--- NOTE | 2024-11-06 16:49 | PTCARENOTE ---
Received to ICU from OR at 1640. Pt very lethargic. Unable to find doppler pulse to left breast flap (which was reported in handoff). Right flap doppler about 1 cm below suture. Sinus rhythm 90s. SpO2 99% on 2L simple mask. Smith draining
clear yellow. 4 abdominal JPs with bloody drainage. Lower abdominal KATELYN drain. No abdominal binder per handoff. Marissa hugger applied.
--- NOTE | 2024-11-06 17:09 | CON.INTV ---
Consultation
Consultation Request
Date/Time Consultation Requested: 11/06
Date/Time Consultation Performed: 11/06
Reason for Consultation: Critical care
Medical History
-
History of Present Illness:
History primarily obtained from the chart, minimal history from the patient as she came from the OR to the ICU, still waking up from anesthesia. 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
bilateral nipple sparing prophylactic mastectomy with immediate reconstruction with DENIS flaps. She has undergone bilateral mastopexy prior on 08/21/2024. Surgery is at the bedside at this time. No dopplerable signal on the left but per exam, Drs
Sophia and Yasmin comfortable with appearance and exam. Patient denies shortness of breath. She denies nausea. She is complaining of some abdominal discomfort
.
PMH: Hypothyroidism, BRCA positive, history of tonsillectomy. History of squamous cell skin lesions, history of PFO. History of bilateral mastopexy as staged procedure for nipple sparing mastectomy
Past Medical History
Past Medical History: None (See above)
Past Surgical History: None ( see above)
Social History
Tobacco: Non-smoker
Family History
Family History: Other (Father with colon cancer, maternal grandmother with ovarian cancer age 53, maternal grandmother with breast cancer age 75)
Allergies / Home Medications
Allergies
Allergy/AdvReac Type Severity Reaction Status Date / Time
apple Allergy itchy mouth Verified 11/06/24 06:35
shellfish derived Allergy Hives Verified 11/06/24 06:35
Home Medications
�Medication �Instructions �Recorded �Confirmed �Last Taken �Type
acetaminophen 325 mg tablet 650 mg (2 x 325 mg) PO Q4HPRN PRN 09/20/23 11/06/24 1 Week Ago Rx
mild pain #0 tabs ~08/14/24
ibuprofen 200 mg capsule 600 mg (3 x 200 mg) PO Q6HPRN PRN 09/20/23 11/06/24 1 Week Ago Rx
moderate pain/cramps #0 caps ~08/14/24
levothyroxine 100 mcg tablet 100 mcg PO HARRISON 08/14/24 11/06/24 11/03/24 History
levothyroxine 50 mcg tablet 50 mcg PO MOTUWETHFRSA 08/14/24 11/06/24 11/05/24 05:00 History
naproxen 250 mg tablet 250 mg PO BID PRN pain 08/14/24 11/06/24 1 Month Ago History
~07/21/24
spironolactone 100 mg tablet 100 mg PO QPM 08/14/24 11/06/24 11/04/24 21:00 History
cholecalciferol (vitamin D3) 50 50 mcg PO HS 10/30/24 11/06/24 11/05/24 08:00 History
mcg (2,000 unit) capsule (Vitamin
D3)
Review of Systems
-
Unable to Obtain full review of systems at this time due to: Acuity
Vitals / Labs / Diagnostic Testing
Vital Signs
Temp Pulse Resp BP Pulse Ox
98.1 F 77 14 98/62 98
11/06/24 06:35 11/06/24 06:35 11/06/24 06:35 11/06/24 06:35 11/06/24 06:35
Lab Data
10/30/24 06:40
10/30/24 06:40
Diagnostic Testing:
Physical Exam
-
HEENT: Normocephalic and Anicteric
Cardiovascular: S1/S2, Regular Rhythm, Murmur (n) and Rub (n)
Respiratory: Wheeze (n), Rales (n) and Rhonchi (n)
GI: Soft and Other (Dressing in place, no obvious bleeding, DOMENIC drain in place)
Neurology: Other (Lethargic but answering questions, nods appropriate, moves all extremities)
Skin: Good Color, Other (Extremities warm) and Other (Bilateral flaps, no obvious bleeding)
General: Comfortable
Assessment
-
29-year-old female with history of BRCA2 and MUTYH mutation, status post bilateral nipple sparing prophylactic mastectomy with immediate reconstruction with DENIS flap 4/2
S/p bilateral nipple sparing prophylactic mastectomy
Followed by immediate reconstruction with DENIS flaps
Absence of left Doppler signal, but exam adequate per surgery
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
Family history of breast cancer, ovarian cancer
Hypothyroidism
History of tonsillectomy
History of PFO with repair
Plan/recommendations
Patient is critically ill but stable
Chest exam is clear
Systolic pressure 90s
Patient without significant discomfort at this time. DOMENIC drain in place with minimal serosanguineous drainage
Issue with Doppler signal lacking in the left breast flap noted. Surgery at bedside. Will continue to follow clinically per surgery
Preprocedure blood work and EKG unremarkable
Moving forward
Continue with IV fluids per surgery
Resume outpatient medication regimen
IV antibiotics, Ancef per protocol
DVT prophylaxis per surgery protocol, to start 4/3 enoxaparin
Sequential teds in place
Bowel regimen as needed
Reviewed with critical care nursing and surgery, plastics
Will follow
--- NOTE | 2024-11-06 17:15 | PTCARENOTE ---
Dr Cortes, Dr Coronado, and Dr Hoffman at bedside and aware of lack of pulse in left breast.
[2024-11-06] MEDS: COMPAZINE 5 MG IV (17:39)
[2024-11-06] MEDS: LR 1000 IV ×2 (17:41→23:54)
[2024-11-06] MEDS: ULTRAM 100 MG PO (17:42)
[2024-11-06] MEDS: ALDACTONE PO (19:09)
[2024-11-06] MEDS: DILAUDID 0.25 MG IV (20:22)
--- NOTE | 2024-11-06 20:30 | PTCARENOTE ---
Pt drowsy, arousable, oriented X3, no c/o pain at this time. Afebrile. NSR on monitor, BP 100s/60. IV lines flushed/patent. LR at 125 hourly. Pulses palpable. Right signal via doppler, left signal unobtainable as previously documented. Paddles
comparable in appearance/soft. DOMENIC outputs as charted. KATELYN drain to lower abdomen. Clears as tolerated, but pt having nausea. Zofran switched to IV. Smith to gravity. Will monitor.
[2024-11-06] MEDS: OFIRMEV 100 IV (22:01)
--- NOTE | 2024-11-06 23:46 | PTCARENOTE ---
No change in previous assessment. Pain controlled with dilaudid, nausea controlled with zofran. Ofirmev added to regimen. Will monitor.
[2024-11-06] MEDS: ANCEF 10 IV (23:54)
[2024-11-07] VITALS (25 sets, daily range): BP systolic 93–118; BP diastolic 43–65
[2024-11-07] MEDS: NEURONTIN PO (00:10)
[2024-11-07] MEDS: ZOFRAN 4 MG IV ×4 (00:10→18:20)
[2024-11-07] MEDS: NSS 1000 IV (01:32)
--- NOTE | 2024-11-07 01:33 | PTCARENOTE ---
Urine output this hour 20cc, BP 93/52, Dr Cortes made aware. 1L NSS bolus infusing as ordered. Will monitor.
[2024-11-07 03:36] LABS: Hematocrit 30.1 % (37.0-47.0); Mean Corp Hgb Conc. 33.2 g/dL (33.0-37.0); Mean Corpuscular Hgb 29.9 pg (27.0-31.0); Mean Corpuscular Volume 89.9 fL (81.0-99.0); Mean Platelet Volume 10.3 fL (7.4-10.4); Platelet Count 278 10^3/uL (130-400); Red Blood Cell Count 3.35 10^6/uL (4.20-5.40); Red Cell Dist. Width 12.7 % (11.5-14.5); White Blood Cell Count 13.2 10^3/uL (4.8-10.8)
[2024-11-07 04:03] LABS: Blood Urea Nitrogen 8 mg/dl (7-17); Calcium 6.9 mg/dl (8.4-10.2); Carbon Dioxide 25 mmol/L (22-30); Chloride 110 mmol/L (98-107); Estimated Creatinine Clearance > 125 ml/min; Glucose 120 mg/dl (70-99); Potassium 4.3 mmol/L (3.5-5.1); Sodium 138 mmol/L (135-145); eGFR > 60.00
[2024-11-07] MEDS: DILAUDID 0.25 MG IV ×2 (04:11→09:05)
[2024-11-07] MEDS: OFIRMEV 100 IV ×3 (04:12→15:21)
[2024-11-07] MEDS: SYNTHROID 50 MCG PO (04:59)
[2024-11-07] MEDS: CALCIUM GLUCONATE 130 MG IV (04:59)
--- NOTE | 2024-11-07 05:26 | PTCARENOTE ---
AM labs sent and resulted. Calcium repleted. Pain under control with IV dilaudid. Zofran q5-6 hours for nausea. Will monitor.
[2024-11-07] MEDS: COLACE 100 MG PO ×3 (07:29→21:03)
[2024-11-07] MEDS: ANCEF 10 IV ×2 (07:30→15:20)
[2024-11-07] MEDS: NEURONTIN 100 MG PO ×3 (07:30→23:11)
[2024-11-07] MEDS: SENOKOT 8.6 MG PO ×2 (07:30→19:35)
--- NOTE | 2024-11-07 07:45 | W.PN.INTV ---
Today's Communication / Plan
Recommendations
Antiemetic therapy
Pain control, bowel regimen
IV fluids, follow urine output
Activity for surgical protocol
DVT prophylaxis both mechanical and pharmacological
Assessment
-
29-year-old female with history of BRCA2 and MUTYH mutation, status post bilateral nipple sparing prophylactic mastectomy with immediate reconstruction with DENIS flap /2
S/p bilateral nipple sparing prophylactic mastectomy
Followed by immediate reconstruction with DENIS flaps
Absence of left Doppler signal, but exam adequate per surgery
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
Family history of breast cancer, ovarian cancer
Hypothyroidism
History of tonsillectomy
History of PFO with repair
Plan/recommendations
At this time, patient is comfortable
Nausea overnight noted, improved
Urine output noted, IV fluids given, adequate at this time
Chest exam is clear
Systolic pressure 90s
DOMENIC drain with minimal drainage.
Mild abdominal and breast discomfort at site of surgery
Right breast flap Doppler positive, bilateral flap pink and intact
Preprocedure blood work and EKG unremarkable
Moving forward
Continue with IV fluids per surgery
Resume outpatient medication regimen
IV antibiotics, Ancef per protocol
DVT prophylaxis per surgery protocol, to start 4/3 enoxaparin
Sequential teds in place
Bowel regimen as needed
Out of bed to chair per protocol
Reviewed with critical care nursing, pharmacy, respiratory care
Subjective Dataa
Subjective Data
Date of Service:
Date of Service: November 07, 2024
Subjective:
Patient remains stable, mild nausea through the night, improved. Denies shortness of breath, lightheadedness. Has some mild chest discomfort and abdominal discomfort. Conversant and appears comfortable
Objective Data
Data Reviewed
Vital Signs / I&O / Oxygen:
Vital Signs
Temp Pulse Resp BP Pulse Ox
99.2 F 84 18 108/62 96
11/07/24 07:03 11/07/24 07:30 11/07/24 07:30 11/07/24 07:00 11/07/24 07:30
Intake and Output
11/06/24 11/07/24 11/08/24
06:59 06:59 06:59
Intake Total 2855 / 2980 125 / 125
Output Total 1475 / 1675 385 / 385
Balance 1380 / 1305 -260 / -260
SaO2 96
Physical Exam
General: Comfortable
HEENT: Normocephalic and Anicteric
Cardiovascular: S1-S2, Regular Rhythm, Murmur (n) and Rub (n)
Respiratory: Wheeze (n), Crackles (n) and Rhonchi (n)
GI: Soft, Non Distended, Tender (Mild, no rebound) and Other (DOMENIC drain x 2 with serosanguineous fluid minimal)
Neurology: Awake, Alert and No Motor Deficits
Skin: Cyanosis (n), Jaundice, Rash and Other (Bilateral breast flap intact per nursing. Left Doppler unobtainable, right Doppler intact)
Labs/Micro/Reports
Lab Data
11/07/24 03:11
11/07/24 03:11
--- NOTE | 2024-11-07 08:10 | PTCARENOTE ---
Assumed care of pt. VSS. Pt A&O. L breast pulse not dopplerable, pink, not tense-unchanged. Right breast with dopplerable pulse. Tolerating clears. Smith draining clear, yellow urine. DOMENIC X4 with scant serous-serosang drainage. Low transverse abd
KATELYN dressing CDI. IVF infusing. SCDs applied. Pt without c/o pain. Marissa haile continued as ordered.
--- NOTE | 2024-11-07 08:39 | W.PN.UPDATE ---
Addendum entered and electronically signed by Estefanía Coronado MD 11/08/24 10:16:
Pt has suspected dilution anemia.
Original Note:
Update Note
Progress Note Update
The patient is POD #1 S/P bilateral nipple-sparing msatectomies and immediate reconstruction with bilateral DENIS flaps. She is awake and alert and
her discomfort is controlled. She was nervous about no Doppler signals from the left breast skin paddle, but reassured her that was due to
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 Flaps are pink, soft and warm; good Doppler signal on the right. Plan for OOB today and advance diet.
[2024-11-07] MEDS: D5/0.45%NACL 1000 IV ×2 (09:06→18:21)
--- NOTE | 2024-11-07 09:43 | PTCARENOTE ---
Pt medicated and assisted OOB to chair. Sarah removed. IVF changed to D5 1/2NS as instructed in Dr. Cortes's order set. Marissa haile removed. Pt tolerating clear liquids.
[2024-11-07] MEDS: VALIUM 5 MG PO ×3 (09:48→21:03)
--- NOTE | 2024-11-07 11:26 | CM ---
CM following re: discharge planning.
Reviewed pt's chart, met with pt.
Pt is a 29 year old female, admitted with primary dx of POD #1 S/P bilateral nipple-sparing mastectomies and immediate reconstruction with bilateral DENIS flaps.
Pt reports she lives with and 2 young children in a 2SH townhouse, 2 steps to enter. 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
CM consult to arrange VN services with RN visit next day of discharge for drain care noted. CM discussed it with the pt, VN choices provided, pt preferred [facility]. [facility] with a request for RN visit next day of discharge made.
Pt stated she must to be able to take steps to get to the second floor. PT and OT will evaluate the pt.
PCP: Shelley Ch
Pharmacy: [facility].
Please fax discharge instructions to [facility] at [phone].
D/C plan: home with [facility] RN visit next day of discharge for drain care and possibly PT. to transport at discharge.
CM will follow with discharge plan updates as hospitalization progresses
[2024-11-07] MEDS: ULTRAM 100 MG PO ×2 (12:14→19:39)
--- NOTE | 2024-11-07 12:19 | PTCARENOTE ---
Pt continues OOB in chair. Assessment unchanged. Ultram given for pain.
--- NOTE | 2024-11-07 12:35 | W.PN.PLAS ---
Today's Communication
-
OOB to chair
Reg Diet
D/C IVF
PO pain meds
Progress Note
Subjective Data
Doing well, pain well-controlled
Denies shortness of breath
Intermittent nausea
Subjective: Smith Removed
Objective Data
Vital Signs
Temp Pulse Resp BP Pulse Ox
98.4 F 81 17 101/60 96
11/07/24 11:07 11/07/24 12:15 11/07/24 12:15 11/07/24 12:00 11/07/24 09:15
Intake and Output
11/06/24 11/07/24 11/08/24
06:59 06:59 06:59
Intake Total 2855 / 2980 1350 / 1350
Output Total 1475 / 1675 910 / 910
Balance 1380 / 1305 440 / 440
Intake:
Oral fluids 50 / 50 600 / 600
IV fluids (Total) 1500 / 1625 650 / 650
D5/0.45%NaCl 1,000 ml @ 100 mls 275 / 275
/hr IV .Q10H LEXIS Rx#:[id number]
Lr 1,000 ml @ 125 mls/hr IV . 1500 / 1625 375 / 375
Q8H LEXIS Rx#:[id number]
IV piggybacks 1100 / 1100 100 / 100
Amount instilled into Drain ( 205 / 205
Total)
Left Lower Abdomen Andrei- 55 / 55
Petersen D
Left Upper Abdomen Andrei- 55 / 55
Petersen C
Right Lower Abdomen Andrei- 45 / 45
Petersen B
Right Upper Abdomen Andrei- 50 / 50
Petersen A
Output:
Drain Output (Total) 40 / 40
Left Lower Abdomen Andrei- 10 / 10
Petersen D
Left Upper Abdomen Andrei- 5 / 5
Petersen C
Right Lower Abdomen Andrei- 10 / 10
Petersen B
Right Upper Abdomen Andrei-
Petersen A
Urine, Smith 1475 / 1675 870 / 870
Physical exam:
No acute distress
No increased work of breathing
Bilateral breasts with flaps showing evidence of good perfusion, warm with cap refill. Doppler signals intact on the right, no Doppler signals on the left as expected. Punctate bleeding with pinprick on the left. No evidence of venous congestion
Drain serosanguineous with appropriate output
Abdominal dressing remains clean dry and intact
Lab Results
11/07/24 03:11
11/07/24 03:11
Assessment / Plan
Status post bilateral D IEP flap breast reconstruction after mastectomy
Postop day 1 free flap protocol
Lovenox tonight, SCDs
Advance to regular diet
DC IV fluids
Antiemetics
Multimodal pain control
Every hour flap checks
--- NOTE | 2024-11-07 12:58 | VNURNOTE ---
Restuarant Crew Worker met with patient to discuss [facility] nurse/therapy, visits, schedule and homebound status. Patient is agreeable and understands that visits at home will be 2-3 x per week to assess and teach medical management.
[facility] contact information provided. Patient is aware that [facility] will contact them for start of care in 1-2 days after discharge from .
[facility] referral completed in [facility].
--- NOTE | 2024-11-07 14:15 | PN.CDI ---
CDI
- -
CDI:
Physician Documentation Request
Admit Date: 11/06/24 06:09
Dear Doctor ,
Please review the following and provide your response in the progress notes.
Clinical Indicators:
Pt s/p bilateral nipple-sparing mastectomies and immediate reconstruction with bilateral DENIS flaps 11/06
Pt care note 11/07 0133,' Urine output this hour 20cc, BP 93/52...'
ESBL 150 ml
10/30/24 11/07/24
06:40 03:11
Hgb 13.4 10.0 L
Hct 41.2 30.1 L
Based on the above, could you clarify, in your progress note, which of the following is the most likely type of anemia you are evaluating, monitoring and/or treating?
Acute blood loss anemia with dilutional component
Abnormal lab value only
Other ( please specify)
Use of terms such as suspected, likely, concern for, or probable (associated with a specific diagnosis that is being evaluated, monitored, or treated as if it exists) are acceptable and can be coded in the inpatient setting, when documented at the
time of discharge.
Thank you,
Megan Madrigal RN
CDI Specialist
[place] [facility]
Please use your independent medical judgment in providing your response.
--- NOTE | 2024-11-07 14:24 | PN.CDI ---
CDI
- -
CDI:
Physician Documentation Request
Physician Documentation Request
Admit Date: 11/06/24 06:09
Dear Doctor ,
Please review the following and provide your response in the progress notes.
Clinical Indicators:
Pt s/p bilateral nipple-sparing mastectomies and immediate reconstruction with bilateral DENIS flaps 11/06
Pt care note 11/07 0133,' Urine output this hour 20cc, BP 93/52...'
ESBL 150 ml
10/30/24 11/07/24
06:40 03:11
Hgb 13.4 10.0 L
Hct 41.2 30.1 L
Please clarify a diagnosis for the above laboratory findings:
Acute blood loss anemia with dilutional component
Abnormal lab value only
Other ( please specify)
Use of terms such as suspected, likely, concern for, or probable (associated with a specific diagnosis that is being evaluated, monitored, or treated as if it exists) are acceptable and can be coded in the inpatient setting, when documented at the
time of discharge.
Thank you,
Megan Madrigal RN
CDI Specialist
[place] [facility]
Please use your independent medical judgment in providing your response.
--- NOTE | 2024-11-07 16:11 | PTCARENOTE ---
Pt remains OOB in chair with SCDs. Small amount of serosang drainage noted from LL DOMENIC drain around the site, leaking onto bed. Flap assessment unchanged. Tolerating small amount of reg diet.
[2024-11-07] MEDS: ALDACTONE 100 MG PO (18:20)
[2024-11-07] MEDS: LOVENOX 40 MG SC (18:20)
--- NOTE | 2024-11-07 20:00 | PTCARENOTE ---
Received patient OOB to chair, AAOx3, reporting abdominal pain 5/10, tramadol given. Left breast pulse absent with doppler, pink, warm,soft. Right breast pulse present with doppler, pink, warm, soft. Poor appetite, tolerating small bites of regular
diet, intermittent nausea. Normal sinus 70s, normothermic, BP stable. SCDs on. 95% on room air, lung sounds clear throughout. Bedside commode to void, standby assist. DOMENIC X4 with serous/serosanguineous drainage. Low abdominal KATELYN dressing CDI. IVF
ongoing. Patient helped back into bed, call masterson within reach.
[2024-11-08] VITALS (21 sets, daily range): BP systolic 96–114; BP diastolic 55–76; PULSE 91; BMI 29.4
--- NOTE | 2024-11-08 00:11 | PTCARENOTE ---
Patient assessment unchanged from previous, hourly checks ongoing. Call masterson within reach.
[2024-11-08] MEDS: ULTRAM 100 MG PO ×3 (02:05→18:59)
[2024-11-08] MEDS: ZOFRAN 4 MG IV ×3 (02:25→18:59)
[2024-11-08] MEDS: DILAUDID 0.25 MG IV ×3 (03:11→11:36)
[2024-11-08 04:15] LABS: Blood Urea Nitrogen 6 mg/dl (7-17); Calcium 7.9 mg/dl (8.4-10.2); Carbon Dioxide 27 mmol/L (22-30); Chloride 107 mmol/L (98-107); Estimated Creatinine Clearance > 125 ml/min; Glucose 103 mg/dl (70-99); Sodium 139 mmol/L (135-145); eGFR > 60.00
[2024-11-08 04:37] LABS: Hematocrit 30.6 % (37.0-47.0); Hemoglobin 9.8 g/dL (12.0-16.0); Mean Corpuscular Hgb 30.2 pg (27.0-31.0); Mean Corpuscular Volume 94.2 fL (81.0-99.0); Mean Platelet Volume 10.6 fL (7.4-10.4); Platelet Count 259 10^3/uL (130-400); Red Blood Cell Count 3.25 10^6/uL (4.20-5.40); Red Cell Dist. Width 13.2 % (11.5-14.5); White Blood Cell Count 10.3 10^3/uL (4.8-10.8)
--- NOTE | 2024-11-08 04:55 | PTCARENOTE ---
Patient received zofran, prn tramadol and dilaudid for pain. Otherwise patient assessment unchanged from previous, call masterson within reach.
[2024-11-08] MEDS: D5/0.45%NACL 1000 IV (05:26)
[2024-11-08] MEDS: VALIUM INJECTION 5 MG IV (06:17)
[2024-11-08] MEDS: SYNTHROID 50 MCG PO (06:17)
--- NOTE | 2024-11-08 07:52 | W.PN.INTV ---
Today's Communication / Plan
Recommendations
Ambulate
Bowel regimen
Pain control
Nausea resolved
Skin flaps intact and Doppler signal adequate on right side, skin pink
For discharge home in the a.m. per plastics
Assessment
-
29-year-old female with history of BRCA2 and MUTYH mutation, status post bilateral nipple sparing prophylactic mastectomy with immediate reconstruction with DENIS flap 11/06
S/p bilateral nipple sparing prophylactic mastectomy
Followed by immediate reconstruction with DENIS flaps
Absence of left Doppler signal, but exam adequate per surgery
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
Family history of breast cancer, ovarian cancer
Hypothyroidism
History of tonsillectomy
History of PFO with repair
Plan/recommendations
At this time, patient is comfortable
Nausea resolved
Urine output noted, IV fluids given, adequate at this time
Chest exam is clear
Systolic pressure 90s
DOMENIC drain with minimal drainage.
Abdominal discomfort improved
Right breast flap Doppler positive, bilateral flap pink and intact
Passing gas, but has not had bowel movement. She describes chronic constipation
Patient ambulating without difficulty
Moving forward
Continue with IV fluids per surgery
Resume outpatient medication regimen
IV antibiotics, Ancef per protocol
Encourage ambulation
DVT prophylaxis per surgery protocol, to start 4/3 enoxaparin
Sequential teds in place
Bowel regimen as needed. Patient states this is normal for her, constipation is typical
Out of bed to chair per protocol
Reviewed with critical care nursing, pharmacy, respiratory care
Reviewed with plastic surgery
Patient for discharge home in the morning 11/09
Reviewed with critical care nursing, respiratory care, pharmacy
Subjective Dataa
Subjective Data
Date of Service:
Date of Service: November 08, 2024
Subjective:
Patient is without complaints, examined earlier today. Feels better overall, denies nausea, shortness of breath. Had abdominal discomfort overnight but this is improved. Appears to be in good spirits. Describes chronic constipation but is
passing gas
Objective Data
Data Reviewed
Vital Signs / I&O / Oxygen:
Vital Signs
Temp Pulse Resp BP Pulse Ox
98.6 F 83 12 109/63 95
11/08/24 03:19 11/08/24 06:15 11/08/24 06:15 11/08/24 03:00 11/07/24 21:27
Intake and Output
11/07/24 11/08/24 11/09/24
06:59 06:59 06:59
Intake Total 2855 / 2980 3475 / 3575 100 / 100
Output Total 1475 / 1675 2615 / 2615 300 / 300
Balance 1380 / 1305 860 / 960 -200 / -200
SaO2 95
Physical Exam
General: Comfortable
HEENT: Normocephalic and Anicteric
Cardiovascular: S1-S2, Regular Rhythm, Murmur (n) and Rub (n)
Respiratory: Wheeze (n), Crackles (n) and Rhonchi (n)
GI: Soft, Non Distended, Tender (Mild, no rebound) and Other (DOMENIC drain x 2 with serosanguineous fluid minimal)
Neurology: Awake, Alert and No Motor Deficits
Skin: Cyanosis (n), Jaundice, Rash and Other (Bilateral breast flap intact per nursing. Left Doppler unobtainable, right Doppler intact)
Labs/Micro/Reports
Lab Data
11/08/24 03:28
11/08/24 03:28
[2024-11-08] MEDS: SENOKOT 8.6 MG PO ×2 (09:05→19:47)
--- NOTE | 2024-11-08 09:05 | W.PN.PLAS ---
Today's Communication
-
Postop day 2 protocol
Out of bed ambulate
Anticipate discharge on postop day 3
Progress Note
Subjective Data
Doing well, pain well-controlled
Denies shortness of breath
Nausea improving
Subjective: Tolerating Regular Diet, Ambulatory, Smith Removed and Patient Voided
Objective Data
Vital Signs
Temp Pulse Resp BP Pulse Ox
98.5 F 79 13 99/74 98
11/09/24 07:00 11/09/24 07:00 11/09/24 07:00 11/09/24 07:00 11/09/24 07:00
Intake and Output
11/08/24 11/09/24 11/10/24
06:59 06:59 06:59
Intake Total 3475 / 3575 1800 / 1800
Output Total 2615 / 2615 3088 / 3088
Balance 860 / 960 -1288 / -1288
Intake:
Oral fluids 840 / 840 1000 / 1000
IV fluids (Total) 2425 / 2525 800 / 800
D5/0.45%NaCl 1,000 ml @ 100 mls 2050 / 2150 800 / 800
/hr IV .Q10H LEXIS Rx#:[id number]
Lr 1,000 ml @ 125 mls/hr IV . 375 / 375
Q8H LEXIS Rx#:[id number]
IV piggybacks 210 / 210
Output:
Drain Output (Total) 245 / 245 138 / 138
Left Lower Abdomen Andrei- 45 / 45 18 / 18
Petersen D
Left Upper Abdomen Andrei- 75 / 75 57 / 57
Petersen C
Right Lower Abdomen Andrei- 70 / 70 28 / 28
Petersen B
Right Upper Abdomen Andrei- 55 / 55 35 / 35
Petersen A
Urine, Smith 870 / 870
Urine, Voided 1500 / 1500 2950 / 2950
Physical exam:
No acute distress
No increased work of breathing
Bilateral breasts with flaps showing evidence of good perfusion, warm with cap refill. Doppler signals intact on the right, no Doppler signals on the left as expected. Punctate bleeding with pinprick on the left. No evidence of venous congestion
Drain serosanguineous with appropriate output
Abdominal dressing remains clean dry and intact
Lab Results
11/09/24 04:30
11/09/24 04:30
Assessment / Plan
Status post bilateral D IEP flap breast reconstruction after mastectomy
Postop day 2 free flap protocol
Lovenox tonight, SCDs
regular diet
PT OT
DC IV fluids
Antiemetics
Multimodal pain control
Every hour flap checks
[2024-11-08] MEDS: COLACE 100 MG PO ×3 (09:06→21:29)
[2024-11-08] MEDS: VALIUM 5 MG PO ×3 (09:06→21:29)
[2024-11-08] MEDS: NEURONTIN 100 MG PO ×3 (09:06→23:36)
--- NOTE | 2024-11-08 09:10 | PTCARENOTE ---
Rec'd pt at 0700- Breast flap checks with off-going RN. Rec'd pt awake alert and oriented although admits she is tired as she states she did not get a lot of sleep last night. Does state that her abd pain is much better and denies discomfort
currently. Speech is clear. Denies dizziness or headache. POE. Skin is pale pink wm and dry. Breast flaps are pink and body temp to touch. Does have a doppler signal on the R breast paddle, continues with no doppler signal on the L breast paddle but
does have a doppler signal on the upper breast itself. Lower abd incision with dressing that is intact- small spot of old drainage on dressing. [address] R and L lateral breast and R and L lateral lower abd. All sites wnl. Draining
serosang drainage. KATELYN drain in place R lower abd- continues to flash yellow. ABd binder is in place. Respirs are unlabored on RA with sats of 97%. BS are clear. Monitor SR. + pulses. Tr pedal edema. Denies chest pain. VS as documented. Abd is soft
hypoactive BS. Does admit to some nausea- Medicated at 0840 with Zofran 4mg IV. Limited appetite-states she is just not hungry. Assisted oob to the [facility] for yellow urine. Sasha care given. Capped int intact R hand. L hand with D51/2NSS at 100 ml/hr
sites wnl. Pt able to help with repositioning. With standing maintained hunched position. Beach Chair position maintained. KH SCD's in place. Call masterson in reach.
--- NOTE | 2024-11-08 10:00 | PTCARENOTE ---
Pt just wants to rest currently. No complaints offered. States she is just tired. Per pt Dr. Cortes in to see pt.
--- NOTE | 2024-11-08 11:40 | PTCARENOTE ---
After working with PT and doing steps pt c/o 03/16 Lower abd soreness. Medicated with Dilaudid 0.25 mg IV. Currently resting oob in the chair
--- NOTE | 2024-11-08 11:55 | CM ---
CM following re: discharge planning.
Reviewed pt's chart, met with pt.
Pt is POD #2 S/P bilateral nipple-sparing mastectomies and immediate reconstruction with bilateral DENIS flaps, continue supportive care.
Pt lives with and 2 young children in a 2SH townhouse, 2 steps to enter. 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
PT and OT evaluations noted - pt has no skilled PT/OT needs.
VN liaison following for arranging RN visit next day of discharge for drain care.
[phone].
D/C plan: home with [facility] RN visit next day of discharge for drain care. to transport at discharge.
CM will follow with discharge plan updates as hospitalization progresses
--- NOTE | 2024-11-08 13:00 | PTCARENOTE ---
Remains sitting oob- dozing at intervals. States earlier Dilaudid brought the abd discomfort to a 2 but from moving discomfort is a 3-4 and pt asking for something to keep ahead of any discomfort. Medicated with Ultram 100 mg po. Ate some toast and
is tolerating but overall appetite remains poor. IV fluids continue via L hand at 100 ml/hr. No other changes
--- NOTE | 2024-11-08 15:00 | PTCARENOTE ---
L hand IV site started to infiltrate around 1430 IV site dc'd. Arm elevated. IV fluids briefly placed via R hand IV site but then order came to DC IV fluids so R hand site capped currently. Pt to bathroom to void and voiding yellow urine. Resting
back in bed currently
[2024-11-08] MEDS: D5/0.45%NACL IV (16:58)
--- NOTE | 2024-11-08 17:00 | PTCARENOTE ---
Pt resting this afternoon. States Ultram helped the lower abd pain. Currently states she is comfortable and denies nausea. Assisted back oob to the bathroom- voiding yellow urine. Pt then ambulated 1 loop around the ICU. Tolerated well. Beach chair
position maintained while in bed and in the chair. Breast flaps and paddles unchanged. Still no signal in L breast paddle but able to get signal in L upper breast. R breast paddle with good signal. Lower abd dressing remains intact. DOMENIC drains
draining serosang drainage. Currently sitting oob. Call masterson in reach.
[2024-11-08] MEDS: ALDACTONE 100 MG PO (18:44)
[2024-11-08] MEDS: LOVENOX 40 MG SC (18:45)
--- NOTE | 2024-11-08 18:49 | PTCARENOTE ---
Better appetite for dinner. Did c/o feeling mildly short of breath. BS are clear. O2 sats on RA are 97%. No other changes in assessment. Voided in the bathroom then assisted back to bed. Ambulating well. Call masterson within reach
[2024-11-08] MEDS: FLUSH (NSS) 1 FLUSH IV (19:00)
--- NOTE | 2024-11-08 19:15 | PTCARENOTE ---
Admits to 4/10 Lower abd pain. Remedicated with Ultram 100mg po and Zofran 4 mg IV for sl nausea post dinner. Did oral care prior to getting back to bed. Breast flap checks completed with oncoming RN
--- NOTE | 2024-11-08 20:00 | PTCARENOTE ---
Received patient in bed, AAOx3, pain at a tolerable level. Left breast pulse absent with doppler, pink, warm, soft, positive doppler pulse on upper breast. Right breast pulse present with doppler, pink, warm, soft. Normal sinus 70s, normothermic, BP
stable. SCDs on. 97% on room air, lung sounds clear throughout. Bathroom to void, standby assist. DOMENIC X4 with serous/serosanguineous drainage. Low abdominal KATELYN dressing CDI, spot of old drainage. Flashrosa maria redMD aware. PIV patent, WNL, capped.
Call masterson within reach.
[2024-11-09] VITALS (9 sets, daily range): BP systolic 92–110; BP diastolic 58–74
--- NOTE | 2024-11-09 00:03 | PTCARENOTE ---
Patient reporting feeling SOB, sats dipping to 89%, QUALITY IMPROVEMENT SPECIALIST notified and incentive spirometer given. Patient educated, encouraged to cough and deep breathe. Otherwise patient assessment unchanged from previous, call masterson within reach.
--- NOTE | 2024-11-09 04:13 | PTCARENOTE ---
Patient assessment unchanged from previous, call masterson within reach.
[2024-11-09] MEDS: ULTRAM 100 MG PO (04:20)
[2024-11-09 04:52] LABS: Hematocrit 29.4 % (37.0-47.0); Hemoglobin 9.5 g/dL (12.0-16.0); Mean Corp Hgb Conc. 32.3 g/dL (33.0-37.0); Mean Corpuscular Hgb 30.2 pg (27.0-31.0); Mean Corpuscular Volume 93.3 fL (81.0-99.0); Mean Platelet Volume 10.4 fL (7.4-10.4); Platelet Count 272 10^3/uL (130-400); Red Blood Cell Count 3.15 10^6/uL (4.20-5.40); White Blood Cell Count 9.4 10^3/uL (4.8-10.8)
[2024-11-09 05:24] LABS: Blood Urea Nitrogen 5 mg/dl (7-17); Calcium 8.5 mg/dl (8.4-10.2); Carbon Dioxide 29 mmol/L (22-30); Chloride 106 mmol/L (98-107); Estimated Creatinine Clearance > 125 ml/min; Glucose 92 mg/dl (70-99); Sodium 139 mmol/L (135-145); eGFR > 60.00
[2024-11-09] MEDS: SYNTHROID 50 MCG PO (05:45)
[2024-11-09] MEDS: ZOFRAN 4 MG IV (07:09)
[2024-11-09] MEDS: SENOKOT 8.6 MG PO (08:13)
[2024-11-09] MEDS: NEURONTIN 100 MG PO (08:13)
[2024-11-09] MEDS: VALIUM 5 MG PO (08:13)
[2024-11-09] MEDS: COLACE 100 MG PO (08:13)
--- NOTE | 2024-11-09 08:22 | W.PN.PLAS ---
Today's Communication
-
Discharged to home when comfortable
Progress Note
Subjective Data
Doing well, denies shortness of breath
Subjective: Tolerating Regular Diet, Ambulatory, Smith Removed and Patient Voided
Objective Data
Vital Signs
Temp Pulse Resp BP Pulse Ox
98.5 F 79 13 99/74 98
11/09/24 07:00 11/09/24 07:00 11/09/24 07:00 11/09/24 07:00 11/09/24 07:00
Intake and Output
11/08/24 11/09/24 11/10/24
06:59 06:59 06:59
Intake Total 3475 / 3575 1800 / 1800
Output Total 2615 / 2615 3088 / 3088
Balance 860 / 960 -1288 / -1288
Intake:
Oral fluids 840 / 840 1000 / 1000
IV fluids (Total) 2425 / 2525 800 / 800
D5/0.45%NaCl 1,000 ml @ 100 mls 2050 / 2150 800 / 800
/hr IV .Q10H LEXIS Rx#:[id number]
Lr 1,000 ml @ 125 mls/hr IV . 375 / 375
Q8H LEXIS Rx#:[id number]
IV piggybacks 210 / 210
Output:
Drain Output (Total) 245 / 245 138 / 138
Left Lower Abdomen Andrei- 45 / 45 18 / 18
Petersen D
Left Upper Abdomen Andrei- 75 / 75 57 / 57
Petersen C
Right Lower Abdomen Andrei- 70 / 70 28 / 28
Petersen B
Right Upper Abdomen Andrei- 55 / 55 35 / 35
Petersen A
Urine, Smith 870 / 870
Urine, Voided 1500 / 1500 2950 / 2950
Physical exam:
No acute distress
No increased work of breathing
Bilateral breasts with flaps showing evidence of good perfusion, warm with cap refill. Doppler signals intact bilaterally. No evidence of venous congestion
Drain serosanguineous with appropriate output
Abdominal dressing remains clean dry and intact
Lab Results
11/09/24 04:30
11/09/24 04:30
Assessment / Plan
Status post bilateral D IEP flap breast reconstruction after mastectomy
Postop day 3 free flap protocol
Visiting nurse arranged
Discharge to home
Will continue Lovenox for 7 days postop
--- NOTE | 2024-11-09 08:24 | W.DCSUMMARY ---
Discharge Summary
Discharge Data
Date of Admission: 11/06/24
Date of Discharge: 11/09/24
-
Pending Results: No
Hospital Course
Patient was admitted following bilateral mastectomy and immediate D IEP flap breast reconstruction. She was monitored in the ICU for every hour flap checks. She followed a routine post operative course. She was progressively able to ambulate,
tolerate a regular diet. Her pain was controlled on oral medications. Smith was removed and she was able to void. She worked with PT OT and arrange a visiting nurse. She was discharged with close surgical follow-up.
Discharge Plan
-
Patient Disposition: Home (Routine Discharge)
Discharge Diagnosis/Procedures: Bilateral D IEP flap breast reconstruction
Condition: Good
Diet: Regular
Activity: No strenuous activity
Additional Activity: No heavy lifting over 10 pounds
Driving Restrictions: Not until seen by your Dr
Bathing Restrictions: OK to Shower
Other Services: VN
Wound Care: Aquaphor and ABD pads as needed to incisions, strip and record drain output twice daily, abdominal binder and compressive bra as needed
Referrals:
Shelley Ch DO [Family Provider] -
Prescriptions:
New
sennosides [Anna-oz] 8.6 mg Tablet
8.6 mg PO BID 14 Days Qty: 28 0RF
tramadol 50 mg Tablet
50 - 100 mg PO Q6HPRN PRN (Reason: mild pain) 14 Days Qty: 20 0RF
docusate sodium 100 mg Capsule
100 mg PO TID 14 Days Qty: 42 0RF
gabapentin 100 mg Capsule
100 mg PO Q8 30 Days Qty: 90 2RF
diazepam 5 mg Tablet
5 mg PO TID 14 Days Qty: 42 0RF
enoxaparin 40 mg/0.4 mL Syringe
40 mg SC QPM 5 Days Qty: 2 0RF
ondansetron 4 mg tablet,disintegrating
4 mg PO Q6H PRN (Reason: nausea and vomiting) Qty: 20 0RF
acetaminophen 500 mg capsule
1,000 mg PO QID Qty: 60 2RF
Continued
spironolactone 100 mg Tablet
100 mg PO QPM
levothyroxine 100 mcg Tablet
100 mcg PO HARRISON
levothyroxine 50 mcg Tablet
50 mcg PO MOTUWETHFRSA
cholecalciferol (vitamin D3) [Vitamin D3] 50 mcg (2,000 unit) Capsule
50 mcg PO HS
Discontinued
ibuprofen 200 mg capsule
600 mg PO Q6HPRN PRN (Reason: moderate pain/cramps) Qty: 0 0RF
acetaminophen 325 mg Tablet
650 mg PO Q4HPRN PRN (Reason: mild pain) Qty: 0 0RF
naproxen 250 mg Tablet
250 mg PO BID PRN (Reason: pain)
Discharge Orders:
Discharge Patient (As Directed); Ordered 11/09/24
Ordered By: Andrea Cortes
Discharge Date and Time
Discharge Date/Time: 11/09/24 10:12
Print Language: MARTINIQUAIS
--- NOTE | 2024-11-09 08:34 | PTCARENOTE ---
Pt rec'd from night RN -flap check completed upon walking rounds handoff. Plan discussed with Dr. Cortes at bedside, pt ok for discharge today. Pt weaned to room air, sa02 94%. Assisted oob to chair at 08:30, eating breakfast. Pain management
discussed as related to discharge. Questions answered, call masterson in hand, safe environment maintained.
[2024-11-09] MEDS: MIRALAX 17 GRAMS PO (09:19)
[2024-11-09] MEDS: DILAUDID 0.25 MG IV (09:54)
== END 2024-11-09 10:12 | disposition home or self-care (01) | DRG 581 ==
LOC: ICU 06:09
PROVIDERS: Nurse Practitioner Family; Surgery Plastic and Reconstructive Surgery; ADMITTING PHYSICIAN Surgery; CONSULT PHYSICIAN Internal Medicine Critical Care Medicine; FAMILY PHYSICIAN Family Medicine
PROC: 0HRV077 Replacement of Bilateral Breast using Deep Inferior Epigastric Artery Perforator Flap, Open Approach (ICD-10-PCS; 2024-11-06)
PROC: 07B80ZX Excision of Right Internal Mammary Lymphatic, Open Approach, Diagnostic (ICD-10-PCS; 2024-11-06)
PROC: 0HTV0ZZ Resection of Bilateral Breast, Open Approach (ICD-10-PCS; 2024-11-06)
PROC: 07B90ZX Excision of Left Internal Mammary Lymphatic, Open Approach, Diagnostic (ICD-10-PCS; 2024-11-06)
DX: Z40.01 Encounter for prophylactic removal of breast (principal); M62.08 Separation of muscle (nontraumatic), other site; E03.9 Hypothyroidism, unspecified; Z15.01 Genetic susceptibility to malignant neoplasm of breast; Z79.899 Other long term (current) drug therapy; Z80.0 Family history of malignant neoplasm of digestive organs; Z80.3 Family history of malignant neoplasm of breast; Z80.41 Family history of malignant neoplasm of ovary; Z87.74 Personal history of (corrected) congenital malformations of heart and circulatory system
CPT/HCPCS: 88305; 88307; 71045; 80048; 80053; 82306; 84134; 85027; 88341; 88342; 93005; 97162; A4648; C1729; C1781; L8000

== ENCOUNTER → 2025-01-13 16:27 | Outpatient (REF) | payer OTHER, SELFPAY | LOC: RAD 16:27 | PROVIDERS: ATTENDING PHYSICIAN Obstetrics & Gynecology Gynecologic Oncology; FAMILY PHYSICIAN Family Medicine | DX: Z15.01 Genetic susceptibility to malignant neoplasm of breast (principal); C44.92 Squamous cell carcinoma of skin, unspecified; N80.03 Adenomyosis of the uterus; N83.01 Follicular cyst of right ovary; Z15.02 Genetic susceptibility to malignant neoplasm of ovary | CPT/HCPCS: 76830; 76856 ==

== ENCOUNTER 2025-02-19 06:32 | Day surgery (SDC) | payer OTHER, SELFPAY ==
[2025-02-19] VITALS (11 sets, daily range): BP systolic 112–135; BP diastolic 59–77; BMI 28.3
[2025-02-19] MEDS: TYLENOL 1000 MG PO (11:37)
[2025-02-19] MEDS: NORMOSOL-R/PLASMALYTE-A 1000 IV (11:38)
[2025-02-19] MEDS: TRANSDERM-SCOP 1 PATCH TRANSDERM (11:47)
[2025-02-19] MEDS: EMEND 40 MG PO (11:47)
--- NOTE | 2025-02-19 16:20 | W.IMMPOSTOP ---
Surgical Immed Post Op Note
-
Primary Surgeon: PRAVEEN Cortes MD
Assisting Surgeon:
Pre-op Diagnosis: Genetic susceptibility of breast cancer, status post surgically acquired absence of bilateral breast
Post-op Diagnosis: Same
Procedure Performed: Breast reconstruction revisions, dogear excisions and correction, fat grafting
Anesthesia Type: General
Specimen / Cultures: None
Estimated Blood Loss: 30 cc
Complications: None
Operative Findings: As expected
--- NOTE | 2025-02-19 16:21 | OR.RPT ---
Operative Report
Operative Report
Date of surgery: 02/19/2025
Surgeon: Belgica Cortes MD
Preoperative diagnosis note:
1. Genetic susceptibility to breast cancer
2. Surgically acquired absence of bilateral breasts
Postoperative diagnosis: Same
Procedure:
1. Revisions to the bilateral reconstructed breasts
2. Bilateral mastopexies
3. Suction assisted lipectomy trunk for lateral breast contouring, reconstructive
4. Excision of bilateral abdominal dogears, 6 x 3 cm, 5 x 2.5 cm
5. Adjacent tissue transfer bilateral trunk, less than 50 cm�
6. Fat grafting to the bilateral breast, 400 cc total
Complications: None
Anesthesia: General
EBL: 30 cc
Specimens: None
Indications for procedure: Patient is a 30-year-old female who underwent staged mastopexy to nipple sparing mastectomy and immediate D IEP flap reconstruction. She was left with contour irregularities, asymmetry, volume discrepancy and desired
revisions to her breast reconstruction. As such a plan was made for excision of the bilateral flap skin islands, bilateral mastopexies, flap debulking and contouring, suction assisted lipectomy of the lateral chest wall and fat grafting to the
bilateral breasts. She also was left with dogear abnormalities from the donor site of her abdomen. As such these would plan to be excised with a lateral rotational advancement flap preventing recurrence. Risks include scar, wound healing issues,
bleeding, infection, persistent contour abnormalities, fat necrosis, need for repeat procedure. She understood these risks desire to proceed
Procedure in detail: Patient was identified preoperatively and the surgical site was confirmed to be the bilateral breast lateral chest wall abdomen and flanks. Patient was marked in the upright position and all questions were answered and consents
were confirmed. Patient was taken back the operating room placed supine on table. Anesthesia was induced the patient was prepped and draped in usual sterile fashion using ChloraPrep solution. A timeout for patient safety was performed was
confirmed that preoperative antibiotics were administered and bilateral SCDs were in place. Procedure began with the injection 1% lidocaine with epinephrine in the bilateral proposed incisional sites from the skin islands on the flaps. Additional
pedicles were made in the abdominal scar and chest wall for injection of tumescent solution of the lateral chest wall anterior abdomen and bilateral flanks. While tumescent solution was allowed to work, attention was drawn to the right breast where
the revision of the reconstructed breast was performed. The triangular skin island was incised with a 15 blade and dissection continued with Bovie electrocautery. The entire flap was dissected free from the overlying mastectomy skin. It was then
allowed to be contoured and repositioned on the chest wall. Following this, the mastopexy was performed secondarily. This was done in a vertical mastopexy pattern and required backcut's in the mastectomy skin flap to allow for skin advancement.
Meticulous hemostasis was ensured and the wound was closed in layers using 2-0 Vicryl followed by 3-0 and 4-0 Monocryl. Attention was drawn to the left side where the exact same procedure was performed. The triangular skin island was excised and
the mastectomy skin flaps recreated with Bovie electrocautery. The revision of the left reconstructed breast was performed by excising debulking and represent positioning the flap on the chest wall. A mastopexy was performed secondarily with a
lateral relaxing incision along the inframammary fold to allow for skin advancement. This was closed in layers with 2-0 Vicryl followed by 3-0 and 4-0 Monocryl after ensuring meticulous hemostasis. Attention was then drawn to the lateral chest
wall where suction assisted lipectomy was performed as part of the breast reconstruction techniques. This allowed for definition of the lateral breast from the chest wall and elimination of skin redundancies in the anterior axillary folds. After
this was performed attention was drawn to the abdominal donor sites for fat grafting. Lipo aspiration was performed and the fat was harvested with the pure graft system. Total of approximately 400 cc of fat was available for injection after
rinsing and eliminating oil and cellular debris. During the processing, the bilateral excisions of the dogears were performed of the after mentioned areas. The resultant defect was then filled with an advancement rotation flap from the superior
lateral skin with a backcut to prevent recurrent dogear deformity. This is done in the way of adjacent tissue transfer. The wounds were closed in layers using 3-0 Monocryl. Attention was then drawn to the bilateral breast where slightly large
amount of fat was grafted in the left breast compared to the right to correct underlying volume asymmetry. Patient tolerated the procedure well, it was performed out complication, all counts were correct. She was extubated taken the PACU further
care. Compressive garments were placed after bandages were applied.
[2025-02-19] MEDS: DILAUDID 0.25 MG IV ×2 (16:46→17:03)
== END 2025-02-19 17:55 | disposition home or self-care (01) ==
LOC: SDS 06:32
PROVIDERS: ATTENDING PHYSICIAN Surgery Plastic and Reconstructive Surgery
DX: N64.89 Other specified disorders of breast (principal); Z15.01 Genetic susceptibility to malignant neoplasm of breast; Z90.13 Acquired absence of bilateral breasts and nipples
CPT/HCPCS: 19380; 15002; 14001; 15771; 15772 ×6

== ENCOUNTER 2025-03-18 04:58 | Emergency (ER) | payer OTHER, SELFPAY ==
[2025-03-18 05:02] VITALS: BP 116/70
[2025-03-18 05:26] LABS: Hematocrit 35.4 % (37.0-47.0); Hemoglobin 11.1 g/dL (12.0-16.0); Mean Corp Hgb Conc. 31.4 g/dL (33.0-37.0); Mean Corpuscular Volume 81.6 fL (81.0-99.0); Nucleated Red Blood Cells % 0 %; Platelet Count 398 10^3/uL (130-400); Red Cell Dist. Width 15.5 % (11.5-14.5)
[2025-03-18 05:48] LABS: ALT (SGPT) 10 U/L (0-35); AST (SGOT) 14 U/L (14-36); Albumin 4.2 g/dl (3.5-5.0); Alkaline Phosphatase 40 U/L (38-126); Blood Urea Nitrogen 11 mg/dl (7-17); Calcium 9.2 mg/dl (8.4-10.2); Carbon Dioxide 26 mmol/L (22-30); Chloride 108 mmol/L (98-107); Glucose 96 mg/dl (70-99); Potassium 4.3 mmol/L (3.5-5.1); Sodium 139 mmol/L (135-145); Total Protein 7.0 g/dl (6.3-8.2); eGFR > 60.00
--- NOTE | 2025-03-18 08:05 | ED.GENMED ---
History of Present Illness
General
Chief Complaint: Breast Problem
Source: patient
Exam Limitations: none
Time Seen by Provider: 03/18/25 08:03
Nursing documentation reviewed up to this point in time: agreed with
History of Present Illness
History of Present Illness:
Patient is a 30-year-old female with history of breast cancer status post double mastectomy November 06 (patient with history of 2 genetic mutation variants predisposing her to breast carcinoma) additional surgery February [address] Cortes plastics presents
to the ER for evaluation. Patient reports on Monday 2 nights ago she noticed some mild drainage and redness to the left breast. She was called in Augmentin by Dr. Coronado and took 1 dose on Monday night. Yesterday she saw Dr. Coronado who did a
culture and evaluated patient. She took 2 doses of Augmentin yesterday. She presented around 4 AM here to the ER because she has felt off. She has noticed increasing redness and increasing pain in this left side with continued drainage. She
denies any actual fevers. She did not take Augmentin today. She has been a little nauseous but she has been trying to drink fluids.
Past History
Past History
ED Past Medical History: Other (adenomyosis, endometriosis)
ED Past Surgical History: Tonsilectomy
Social History
Tobacco: Non-smoker
Alcohol: Occasional
Drug: None
Personal:
Living: with family
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
Phy Exam
General Physical Exam
General Presentation: no apparent distress
General age: appears stated age
General Skin: warm and dry
General Habitus: normal
General Mental: alert
General Hydration: appears well hydrated
Neurological Exam
Neurological Exam: alert and oriented x3
Musculoskeletal Exam
Musculoskeletal Exam: full ROM
Skin Exam
Skin Exam: normal color, warm/dry and other (Left breast with very minimally red to the inferior portion small opening with small amount of purulent discharge)
Sepsis
Sepsis Screening
Sepsis Assessment: Sepsis Ruled Out
Sepsis Screen
Sepsis Screen: Sepsis Ruled Out
Date: 03/18/25
Time: 10:52
Course
Orders/Labs/Results
Orders:
Orders
03/18/25 05:13
Complete Blood Count/With Diff Urgent
Comprehensive Metabolic Panel Urgent
Lactate Level [Lactic Acid] Urgent
03/18/25 08:50
US Breast Left Ltd WDC Urgent
Reason for Exam: DRAINAGE REDNESS OF LT BREAST
03/18/25 10:28
CBC/With Diff [Complete Blood Count/With Diff] Urgent
Wound Culture [Wound/Abscess/Other Culture] Urgent
SOHAIL Source: Abscess
Specimen Description:
Date Specimen was Collected: 03/18/25
Time Specimen was Collected: 09:56
Comment: left breast
Abnormal Lab Results
03/18/25 03/18/25
05:13 10:28
Hgb 11.1 L g/dL 10.8 L g/dL
(12.0-16.0) (12.0-16.0)
Hct 35.4 L % 34.7 L %
(37.0-47.0) (37.0-47.0)
MCH 25.6 L pg 25.7 L pg
(27.0-31.0) (27.0-31.0)
MCHC 31.4 L g/dL 31.1 L g/dL
(33.0-37.0) (33.0-37.0)
RDW 15.5 H % 15.5 H %
(11.5-14.5) (11.5-14.5)
Absolute Monos (auto) 0.8 H 10^3/uL 0.9 H 10^3/uL
(0.1-0.6) (0.1-0.6)
Monocytes % 9.4 H % 9.8 H %
(1.7-9.3) (1.7-9.3)
Chloride 108 H mmol/L
(98-107)
03/18/25 10:28
03/18/25 05:13
Vital Signs
Initial and Last Documented VS:
Initial Vital Signs
Temp Pulse Resp BP Pulse Ox
98.1 F 82 18 116/70 100
03/18/25 05:02 03/18/25 05:02 03/18/25 05:02 03/18/25 05:02 03/18/25 05:02
Last Documented Vital Signs
Temp Pulse Resp BP Pulse Ox
98.1 F 60 18 104/65 99
03/18/25 05:02 03/18/25 10:01 03/18/25 05:02 03/18/25 10:01 03/18/25 10:01
MDM/Problems Addressed
Differential Diagnosis Includes:
Not limited to cellulitis, breast abscess, postop seroma
MDM/Problems Addressed:
Patient is a 30-year-old female who has had prophylactic bilateral mastectomy with recent reconstruction again February, by Dr. Cortes. Presented for drainage some discomfort to left breast. She was seen by Dr. Coronado who is also following patient's
case yesterday. She was ordered Augmentin a culture was done. She presented here with concern for increasing drainage and mild discomfort. She denies any fevers and is afebrile here with normal white toxic. On exam there is very small amount of
drainage very minimally red
Case reviewed with both Dr. Coronado and Dr. Cortes.
ultrasound shows complex fluid collection in the inferior left breast wall which is likely postop seroma.
Dr. Cortes did review the ultrasound and recommends continued antibiotic, Augmenti with close outpatient follow-up this week.
Patient's initial white count was normal but she was concerned I did request a second CBC to be drawn which was done and on change.
She is well-appearing in no acute distress stable for discharge home. The initial culture was done at Dr. Coronado's office and sent to [facility] I did redraw a culture as well not
Chronic conditions affecting care:
Prophylactic mastectomy
*Radiology
Radiology exam reviewed: radiology read reviewed
*Pulse Oximetry
SaO2: 100
Oxygen Mode of Delivery: Room air
Patient hypoxic: no
*Critical Care Note
Total Time (30-74mins, 75-104mins- exclusive of procedures): Not Applicable
Patient Management
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
Escalation/DeEscalation of care consider admission/obs:
DR Coronado and DR Cortes
ED Attending Note
-
Portions of this chart may have been created with voice recognition software.� Occasional wrong word or��sound alike� substitutions may have occurred due to the inherent limitations of voice recognition software.
Discharge Plan
Departure
Patient Disposition: Home (Routine Discharge)
Date of Disposition: 03/18/25
Time of Disposition: 10:05
Patient with high blood pressure during this ER visit?: No
Condition: Fair
Covid-19: Not Applicable
Discharge Problem:
Breast infection
Prescriptions:
No Action
spironolactone 100 mg Tablet
100 mg PO QPM
levothyroxine 100 mcg Tablet
100 mcg PO HARRISON
levothyroxine 50 mcg Tablet
50 mcg PO MOTUWETHFRSA
cholecalciferol (vitamin D3) [Vitamin D3] 50 mcg (2,000 unit) Capsule
50 mcg PO HS
escitalopram oxalate [Lexapro] 10 mg Tablet
10 mg PO DAILY
Referrals:
Shelley Ch DO [Family Provider]
Andrea Cortes MD [Active, Plastic Surgery]
Activity Restrictions/Additional Instructions:
As discussed stay on antibiotics, Augmentin.
Please call Dr. Cortes's office to make an appointment to be seen later this week or Monday for recheck. Return however to the ER for any worsening of symptoms of increased pain redness drainage fever or chills.
Your culture results are pending. You will be notified if antibiotic needs to be changed.
Interventions
Interventions:
*Risk Screen - Suicide Last Done: 03/18/25 05:02
*General Assessment Last Done: 03/18/25 09:45
*Neglect/Abuse Screening Last Done: 03/18/25 05:02
*ED COVID-19 Vaccine History Last Done: 03/18/25 09:45
ED-Skin Assessment Last Done: 03/18/25 09:45
Discharge Date and Time
Print Language: TAMAZIGHT
[2025-03-18 10:01] VITALS: BP 104/65
[2025-03-18 10:40] LABS: Hematocrit 34.7 % (37.0-47.0); Hemoglobin 10.8 g/dL (12.0-16.0); Mean Corp Hgb Conc. 31.1 g/dL (33.0-37.0); Mean Corpuscular Volume 82.4 fL (81.0-99.0); Nucleated Red Blood Cells % 0 %; Platelet Count 369 10^3/uL (130-400); Red Cell Dist. Width 15.5 % (11.5-14.5)
== END 2025-03-18 10:48 | disposition home or self-care (01) ==
LOC: EMR 04:58
PROVIDERS: Emergency Medicine; Nurse Practitioner; EMERGENCY PHYSICIAN Emergency Medicine; FAMILY PHYSICIAN Family Medicine
DX: N61.0 Mastitis without abscess (principal); Z85.3 Personal history of malignant neoplasm of breast; Z90.13 Acquired absence of bilateral breasts and nipples
CPT/HCPCS: 99284; 76642; 80053; 83605; 85025; 87070; 87147; 87205

== ENCOUNTER → 2025-03-26 12:50 | Outpatient (REF) | payer OTHER, SELFPAY | LOC: RAD 12:50 | PROVIDERS: ATTENDING PHYSICIAN Obstetrics & Gynecology Gynecologic Oncology; FAMILY PHYSICIAN Family Medicine | DX: Z15.02 Genetic susceptibility to malignant neoplasm of ovary (principal); Z15.01 Genetic susceptibility to malignant neoplasm of breast; N80.03 Adenomyosis of the uterus; N83.01 Follicular cyst of right ovary | CPT/HCPCS: 76830; 76856 ==

== ENCOUNTER 2025-04-10 04:50 | Inpatient (IN) | payer OTHER, SELFPAY ==
[2025-04-10 00:24] VITALS: BP 116/80
[2025-04-10 01:01] LABS: Hematocrit 31.6 % (37.0-47.0); Hemoglobin 10.2 g/dL (12.0-16.0); Mean Corp Hgb Conc. 32.3 g/dL (33.0-37.0); Mean Corpuscular Volume 78.8 fL (81.0-99.0); Nucleated Red Blood Cells % 0 %; Platelet Count 378 10^3/uL (130-400); Red Cell Dist. Width 15.9 % (11.5-14.5)
[2025-04-10 01:10] LABS: HCG, Serum Qualitative Screen Negative
[2025-04-10 01:19] LABS: ALT (SGPT) 23 U/L (0-35); AST (SGOT) 19 U/L (14-36); Albumin 4.4 g/dl (3.5-5.0); Alkaline Phosphatase 55 U/L (38-126); Blood Urea Nitrogen 13 mg/dl (7-17); Calcium 9.5 mg/dl (8.4-10.2); Carbon Dioxide 21 mmol/L (22-30); Chloride 107 mmol/L (98-107); Glucose 99 mg/dl (70-99); Potassium 3.9 mmol/L (3.5-5.1); Sodium 137 mmol/L (135-145); Total Protein 7.4 g/dl (6.3-8.2); eGFR > 60.00
--- NOTE | 2025-04-10 03:31 | ED.GENMED ---
History of Present Illness
General
Chief Complaint: Breast Problem
Source: patient and previous hospital records
Exam Limitations: none
Time Seen by Provider: 04/10/25 02:47
Nursing documentation reviewed up to this point in time: agreed with
History of Present Illness
History of Present Illness:
This is a 30-year-old female with history of BRCA gene mutation with increased genetic risk of breast cancer who underwent prophylactic bilateral nipple sparing mastectomies in November of this year.
She then underwent revisions to bilateral reconstructed breasts February 19, abdominal liposuction and fat transfer to bilateral reconstructed breasts for contouring/reconstruction. In mid March she developed left breast redness, pain, wound infection
with culture reportedly positive for Staph aureus/MSSA. Treated with a 14-day course of Augmentin which she completed approximately 1 week ago with resolution of redness and swelling.
She had follow-up appointment with her plastic surgeon last Monday and everything looked good.
She and her family traveled to [place] the following day, Monday and she states by Monday she developed recurrent redness to her left breast that has worsened over the next several days. She has had intermittent chills and nausea without vomiting.
She is not had a fever. She placed a call to her surgeon and was started on cefadroxil 2 days ago. Despite initiation of antibiotic left breast redness, pain have worsened. She has not noticed any drainage.
She returned home from [facility] at 10 PM.
Past History
Past History
ED Past Medical History: Other (adenomyosis, endometriosis, BRCA gene positive)
ED Past Surgical History: Gynecological (Prophylactic nipple sparing bilateral mastectomies with reconstruction November 2024, February 2025) and Tonsilectomy
Social History
Tobacco: Non-smoker
Alcohol: Occasional
Drug: None
Personal:
Living: with family
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
Family History
Family History: Other (Noncontributory)
Phy Exam
Physical Exam
Physical Exam:
GENERAL: 30-year-old female appears her stated age, awake and alert, pleasant, appears in no acute distress. Afebrile.
EYE: anicteric
NECK: Supple, nontender, no meningismus, no significant adenopathy.
ENT: oral mucosa is moist. No rhinorrhea.
CARDIAC: Regular rate and rhythm. no murmur.
BREAST: Bilateral nipple sparing mastectomies, incisions are dry and intact. Left breast has moderate global erythema, with moderate palpable heat and left breast is moderately tender to palpation. There is no drainage. No palpable abscess.
LUNGS: Clear breath sounds bilaterally, no acute respiratory distress, no wheezes/rales/rhonchi
ABDOMEN: Soft, nondistended, without focal tenderness, no r/g, no cvat. normoactive BS.
NEUROLOGICAL: Alert and oriented x3, no focal neuro deficits. Gait is steady.
SKIN: Warm and dry, normal color, skin intact. No rash.
MUSCULOSKELETAL: No C/C/E. peripheral pulses are full and equal b/l. No palpable tenderness.
PSYCH: Normal and appropriate interaction.
Course
Orders/Labs/Results
Orders:
Orders
04/10/25 00:35
Test Result ONCE
04/10/25 00:50
Complete Blood Count/With Diff Urgent
Comprehensive Metabolic Panel Urgent
HCG, Serum Qualitative Screen Urgent
Lactate Level [Lactic Acid] Urgent
Blood Culture Urgent
SOHAIL Source: Blood/Venous
Specimen Description:
04/10/25 03:25
Ketorolac [Toradol] 15 mg IV NOW STA
04/10/25 03:26
Vancomycin [Vancocin] 2,000 mg 0.9% Sodium Chloride 500 ml [Nss] 500 ml IV NOW
04/10/25 03:30
Blood Culture Urgent
SOHAIL Source: Blood/Venous
Specimen Description:
Abnormal Lab Results
04/10/25
00:50
WBC 15.4 H 10^3/uL
(4.8-10.8)
RBC 4.01 L 10^6/uL
(4.20-5.40)
Hgb 10.2 L g/dL
(12.0-16.0)
Hct 31.6 L %
(37.0-47.0)
MCV 78.8 L fL
(81.0-99.0)
MCH 25.4 L pg
(27.0-31.0)
MCHC 32.3 L g/dL
(33.0-37.0)
RDW 15.9 H %
(11.5-14.5)
MPV 10.5 H fL
(7.4-10.4)
Abs Immat Gran (auto) 0.1 H 10^3/uL
(0-0.05)
Absolute Neuts (auto) 11.5 H 10^3/uL
(1.4-6.5)
Absolute Monos (auto) 1.4 H 10^3/uL
(0.1-0.6)
Lymphocytes % 14.8 L %
(20.5-51.1)
Carbon Dioxide 21 L mmol/L
(22-30)
Lactic Acid 0.6 L mmol/L
(0.7-2.0)
04/10/25 00:50
04/10/25 00:50
Vital Signs
Initial and Last Documented VS:
Initial Vital Signs
Temp Pulse Resp BP Pulse Ox
99.3 F 107 20 116/80 100
04/10/25 00:24 04/10/25 00:24 04/10/25 00:24 04/10/25 00:24 04/10/25 00:24
Last Documented Vital Signs
Temp Pulse Resp BP Pulse Ox
99.3 F 107 20 116/80 100
04/10/25 00:24 04/10/25 00:24 04/10/25 00:24 04/10/25 00:24 04/10/25 03:32
MDM/Problems Addressed
Differential Diagnosis Includes:
The Differential Diagnosis includes, in no particular order and is not limited to:
1. Post-surgical infection.
2. Cellulitis.
3. Abscess formation.
4. Fat necrosis.
5. Breast hematoma.
6. Seroma.
7. Exacerbation of lymphatic drainage issues.
8. Inflammatory breast cancer (less likely post-mastectomy).
9. Allergic reaction to surgical materials.
10. Mastitis.
MDM/Problems Addressed:
Left breast erythema, worsening despite oral antibiotics x 48 hours.
Complaints of chills, nausea, significant concern for cellulitis, concern for bacteremia/sepsis.
As symptoms have worsened despite oral antibiotics, patient has an infected failed outpatient antibiotic therapy and thus will require IV antibiotics and hospitalization.
Labs are remarkable for elevated white blood cell count at 15.4, trending up from previous. Mild but stable anemia.
Chemistries are unremarkable. Lactic acid is normal. hCG is negative.
Will initiate IV vancomycin and plan to admit to hospital service.
There is no palpable mass nor abscess. At this point no indication for imaging.
Blood cultures are pending.
*Pulse Oximetry
SaO2: 100
Oxygen Mode of Delivery: Room air
Patient hypoxic: no
*Critical Care Note
Total Time (30-74mins, 75-104mins- exclusive of procedures): Not Applicable
ED Attending Note
-
Portions of this chart may have been created with voice recognition software.� Occasional wrong word or��sound alike� substitutions may have occurred due to the inherent limitations of voice recognition software.
Discharge Plan
Departure
Patient Disposition: Admit
Date of Disposition: 04/10/25
Time of Disposition: 03:31
Admit to doctor: Lucy
Presentation/result/management discussed w/ accepting MD/DO: Hospitalist
Condition: Fair
Discharge Problem:
Cellulitis of left breast
Prescriptions:
No Action
spironolactone 100 mg Tablet
100 mg PO QPM
levothyroxine 100 mcg Tablet
100 mcg PO HARRISON
levothyroxine 50 mcg Tablet
50 mcg PO MOTUWETHFRSA
cholecalciferol (vitamin D3) [Vitamin D3] 50 mcg (2,000 unit) Capsule
50 mcg PO HS
escitalopram oxalate [Lexapro] 10 mg Tablet
10 mg PO DAILY
Referrals:
Shelley Ch DO [Family Provider]
Interventions
Interventions:
*Risk Screen - Suicide Last Done: 04/10/25 00:24
*General Assessment Last Done: 04/10/25 04:03
*Neglect/Abuse Screening Last Done: 04/10/25 04:03
*ED- Fall Risk Assessment Last Done: 04/10/25 04:03
ED-Skin Assessment Last Done: 04/10/25 03:20
Discharge Date and Time
Print Language: SWEDISH
[2025-04-10] MEDS: TORADOL 15 MG IV (03:35)
[2025-04-10] MEDS: VANCOCIN 540 MG IV (03:49)
--- NOTE | 2025-04-10 04:13 | HPS.HSE ---
Family Physician
-
Family Physician: Shelley Ch DO
Chief Complaint
-
breast/skin redness
History of Present Illness
This is a 30-year-old female with past medical history significant for hypothyroid, acne, depression who is positive for platelet mutation of MUTYH gene and is status post preventative bilateral breast mastectomy presenting to the emergency
department with painful redness of the left breast.
Patient had surgery for bilateral breast mastectomy in November followed by revision in February. She then developed postop complication with cellulitis of the breast. She reports the cellulitis was mostly affecting the left breast. She had this redness
and pain and pain with movement of her left arm. She had an ultrasound which showed fluid collection but was felt not to require drainage. There was still an open wound at the suture site at that time and drainage from the area grew MSSA. Patient
was placed on Augmentin. She finished the Augmentin April 04. She stated that after finishing the Augmentin she had significant improvement in the erythema which she is able to almost completely resolved and she had no further pain or discomfort.
However 2 to 3 days later she started developing redness and swelling again. She spoke to her physician who prescribed oral cephalosporin. Patient has been taking the third-generation oral cephalosporin for the last 2 days. Despite this she has
had increasing redness and swelling and discomfort. She denies any discharge. She has not had any fevers or chills. She denies any systemic signs such as nausea or vomiting.
In the Emergency Department she was afebrile, blood pressure was 116/80 with a pulse of 107 and saturation of 100%. At Tmax was 99.3.
She has a white count of 15.4 otherwise CBC was unchanged and unremarkable. Electrolytes BUN and creatinine were all normal.
Medical History
Past Medical History
Past Medical History: Reports Hypothyroidism
Past Surgical History: Reports Tonsilectomy and Other (Bilateral mastectomy)
Social History
Tobacco: Non-smoker
Alcohol: None
Drug: None
Personal:
Living: With Family
Family History
Family History: Not pertinent
Allergies / Home Medications
Allergies reflects when Allergies were last updated in [facility].
Home Medications with original date entered in [facility]
Allergy/Medication List:
Allergies
Allergy/AdvReac Type Severity Reaction Status Date / Time
apple Allergy itchy mouth Verified 04/10/25 00:23
shellfish derived Allergy Hives Verified 04/10/25 00:23
Home Medications
levothyroxine 100 mcg tablet 100 mcg PO HARRISON Thyroid 08/14/24
levothyroxine 50 mcg tablet 50 mcg PO MOTUWETHFRSA Thyroid 08/14/24
spironolactone 100 mg tablet 100 mg PO QPM ACNE; 08/14/24
escitalopram oxalate 10 mg tablet (Lexapro) 10 mg PO DAILY 02/13/25
Review of Systems
-
Constitutional: Reports No Symptoms
EENT: Reports No Symptoms
Respiratory: Reports No Symptoms
Cardiac: Reports No Symptoms
Abdomen/GI: Reports No Symptoms
: Reports No Symptoms
Musculoskeletal: Reports No Symptoms
Skin: Reports Other (Left breast cellulitis about 7 cm in diameter with mild induration. No obvious drainage or collection.)
Neurological: Reports No Symptoms
Endocrine: Reports No Symptoms
Hematologic/Lymphatic: Reports No Symptoms
Psych: Reports No Symptoms
Physical Exam
Vital Signs
Vital Signs
Temp Pulse Resp BP Pulse Ox
99.3 F 107 20 116/80 100
04/10/25 00:24 04/10/25 00:24 04/10/25 00:24 04/10/25 00:24 04/10/25 03:32
Physical Exam
General: Well Developed, Well Nourished and No Apparent Distress
HEENT: NormoCephalic, Moist mucous membranes and Atraumatic
Respiratory: Clear
Cardiac: S1/S2 and Regular Rhythm; No Murmur or Rub
GI: Soft, Non Tender, Non Distended and Normal Bowel Sounds; No Organomegaly
Rectal: Deferred by Provider
Genito-urinary: Deferred by me
Musculoskeletal: No Clubbing, No Cyanosis and No Edema
Skin: Rash (erythema and induration surrounding the left areola including the 4 quadrants. Suture site appears clean/dry. No drainage. )
Neuro: AO x 3 and Nonfocal/grossly intact
Hematologic/Lymphatic: No Lymphadenopathy
Psych: Calm
Laboratory Results
-
04/10/25 00:50
04/10/25 00:50
Laboratory Results
Lactic Acid 0.6 mmol/L (0.7-2.0) L 04/10/25 00:50
Total Bilirubin 0.4 mg/dl (0.2-1.3) 04/10/25 00:50
AST 19 U/L (14-36) 04/10/25 00:50
ALT 23 U/L (0-35) 04/10/25 00:50
Alkaline Phosphatase 55 U/L (38-126) 04/10/25 00:50
Data Reviewed
-
Ultrasound: Report Reviewed by me
Lab Data: Labs Reviewed by me
Old Records: Reviewed
Impression/Plan
-
IMPRESSION:
30-year-old with MUTYH genetic mutation and status post preemptive bilateral mastectomy coming into the emergency department with recurrent left breast cellulitis. She has significant erythema and induration in all 4 quadrants of the left breast.
No obvious drainage at this time. She had a recent ultrasound on March 18 showing a complex fluid collection in the inferior left chest wall which is likely a postop seroma. Infection cannot be excluded. She has completed a 2-week course of
Augmentin with immediate rebound of the cellulitis afterwards. She did not do well with oral cephalosporin over the last 2 days. She has no systemic signs here and shows no sepsis.
PLAN:
Left breast cellulitis/postop -failure of oral antibiotics. Cannot rule out infected collection. No current drainage
[facility]
-Blood cultures sent
-IV vancomycin
-Given complex fluid collection and persistent infection, will consult plastics
-Pain control
Hypothyroid
-Continue levothyroxine as per home regimen
Anxiety
-Continue citalopram
Neck knee
-Continue spironolactone
DVT prophylaxis�Lovenox subcu
CODE STATUS�full code
[2025-04-10 06:00] VITALS: BMI 29.6
[2025-04-10 06:19] VITALS: BP 109/66
[2025-04-10] MEDS: SYNTHROID 50 MCG PO (06:25)
[2025-04-10 07:04] VITALS: BP 101/61
--- NOTE | 2025-04-10 08:49 | W.PN.HOSP.TC ---
Today's Communication/Plan
-
ID consult
Plastics consult
Assessment / Plan
Assessment / Plan
Gen-AAOx3, NAD
HEENT-NC, AT, anicteric, clear oral mm
Neck-supple
CV-reg, no M, +S1/S2
Lungs-clear B/L
Abd-soft, NT, ND
Ext-no edema
Musculoskeletal-no cyanosis, clubbing
Skin-warm and dry, left breast with mild erythema laterally and under breast without any drainage from surgical site.
Neuro-grossly non-focal
Psych-calm, cooperative
Sepsis due to recurrent left breast skin/soft tissue infection -Will need further imaging to evaluate for underlying abscess. No active drainage currently.
Currently on IV vancomycin.
Blood cultures drawn last night.
Await plastic surgery, ID input.
She just completed a course of Augmentin last week with improvement in recent cellulitis. Unfortunately recurred within 48 hours and started a course of cefadroxil on April 08.
Chronic anemia -hemoglobin at baseline.
BRCA positive -underwent prophylactic bilateral mastectomies November 2024. Breast reconstruction February 2025.
Anxiety disorder -continue Lexapro.
Hypothyroidism -continue levothyroxine.
Full code
Anticipated Discharge: > 48 hours
Subjective/Interval History
-
Date of Service: April 10, 2025
Patient seen and examined. No new complaints.
Patient was examined in the presence of patient's nurse Angelina.
Objective Data
-
Labs:
Laboratory Results
04/10/25
00:50
WBC 15.4 H
Hgb 10.2 L
Hct 31.6 L
Plt Count 378
Sodium 137
Potassium 3.9
Chloride 107
Carbon Dioxide 21 L
BUN 13
Creatinine 0.6
Glucose 99
Calcium 9.5
Total Bilirubin 0.4
AST 19
ALT 23
Alkaline Phosphatase 55
Vital Signs:
Vital Signs
Temp Pulse Resp BP Pulse Ox
97.8 F 91 20 109/66 97
04/10/25 06:19 04/10/25 06:19 04/10/25 06:19 04/10/25 06:19 04/10/25 06:19
Review of Systems
-
History Source: Patient
All other systems: Reviewed and negative
[2025-04-10] MEDS: LEXAPRO 10 MG PO (08:57)
[2025-04-10] MEDS: ALDACTONE 100 MG PO (09:03)
--- NOTE | 2025-04-10 09:10 | CON.ID ---
Addendum entered and electronically signed by Anamaria Peters MD 04/10/25 12:46:
I personally performed a history and physical exam of the patient and discussed management with the resident. I reviewed the resident's note and agree with most of the documented findings and plan of care HPI/CC.
# Post-op left breast SSTI with MSSA , suspect underlying abscess as patient did not fully respond to 14d course Augmentin
# Leukocytosis
# Recent hx prophylactic b/l mastectomies with reconstruction 11/06/24 s/p revision with fat pad (no implants) 02/19/25
- CT chest pending
- Blood cx's pending
- For OR I+D per Plastics
- DC Vancomycin
- Start cefazolin 2g IV q8h
- Trend wbc.
Original Note:
Consultation
-
Date/Time Consultation Requested: 04/10/2025 08:47
Date/Time Consultation Performed: 04/10/2025 09:00
Requesting Provider: Dr. Stout
Performing Provider: Rudi Desai MD ; Anamaria Peters MD
Reason for Consultation: Recurrent cellulitis; Left breast
Chief Complaint / Past History
Chief Complaint
Left breast redness
History of Present Illness
This is a 30-year-old female with past medical history significant for hypothyroidism, acne, depression, + mutation of MUTYH gene, BRCA gene and is s/p preventative bilateral breast mastectomy in 11/2024.
She underwent revisions of bilateral reconstructed breast on February 19, abdominal liposuction and fat transfer to bilateral reconstructed breast for contouring/reconstruction.
Around second week of March she developed left breast redness, pain, wound infection with culture positive for Staph aureus/MSSA. She had an ultrasound which showed fluid collection but was felt not to require drainage. There was still an open
wound at the suture site at that time and drainage from the area grew MSSA.. She was treated with 14-day course of Augmentin which she finished on April 04. Reports that upon completion of the antibiotic the redness and the pain was gone. She
followed up with her plastic surgeon last Monday and everything was healing as expected. She traveled to [place] on Monday and noticed redness of her breast on Monday which continued to persist. She also had intermittent chills and nausea but
denies any vomiting. Denies any fever. She called her plastic surgeon 3 days ago and was started on cefadroxil which she utilized for 2 days however did not notice any improvement. And decided to come to the emergency department today.
In the Emergency Department she was afebrile, blood pressure was 116/80 with a pulse of 107 and saturation of 100%. Labs showed leukocytosis with white count of 15.4. She was admitted for further care and plastics were consulted.
Past History
Past Medical History: Hypothyroidism and Other (Nicotine, depression, BRCA mutation, adenomyosis)
Past Surgical History: Tonsilectomy and Other (Bilateral mastectomy)
Allergy History:
apple Allergy (Verified 04/10/25 00:23)
itchy mouth
shellfish derived Allergy (Verified 04/10/25 00:23)
Hives
Medications Reviewed: Yes
Current Antibiotics:
Vancomycin
Social History
Tobacco: Non-Smoker
Alcohol: None
Drug: None
Personal:
Living: With Family
Family History
Family History: Cancer (Breast cancer)
Review of Systems
Review of Systems
General: Negative Fever
Cardiovascular: Negative Chest Pain
Respiratory: Negative Cough
Gasteroenterology: Negative Nausea or Vomiting
Genital / Urological: Negative Dysuria
Musculoskeletal: Negative Joint Pain
Skin / Hair / Nails: Other (Left breast; Redness and pain)
Neurological: Negative Headache
Vital Signs
Temp Pulse Resp BP Pulse Ox
98.1 F 82 18 101/61 100
04/10/25 07:04 04/10/25 07:04 04/10/25 07:04 04/10/25 07:04 04/10/25 07:04
Physical Exam
Physical Exam
Constitutional: No Acute Distress and Comfortable
Cardiovascular: Regular Rate and S1/S2
Pulmonary: Clear and Non Labored
Gastrointestinal: Soft and Non Tender
Skin: Other (Left breast; erythematous with mild induration. No obvious drainage or collection. Mild tender to touch. Right breast unremarkable)
Neurological: Awake, Alert and Oriented
Psychological: Calm
Patient was examined in the presence of patient's nurse Angelina.
Lab / Diagnostic Study Results
04/10/25 00:50
04/10/25 00:50
Abs Immat Gran (auto) 0.1 10^3/uL (0-0.05) H 04/10/25 00:50
Absolute Neuts (auto) 11.5 10^3/uL (1.4-6.5) H 04/10/25 00:50
Absolute Lymphs (auto) 2.3 10^3/uL (1.2-3.4) 04/10/25 00:50
Absolute Monos (auto) 1.4 10^3/uL (0.1-0.6) H 04/10/25 00:50
Absolute Basos (auto) 0.1 10^3/uL (0-0.2) 04/10/25 00:50
Immature Gran % 0.3 % (0-0.5) 04/10/25 00:50
Neutrophils % 74.7 % (42.2-75.2) 04/10/25 00:50
Lymphocytes % 14.8 % (20.5-51.1) L 04/10/25 00:50
Monocytes % 9.1 % (1.7-9.3) 04/10/25 00:50
Eosinophils % 0.5 % (0-6) 04/10/25 00:50
Basophils % 0.6 % (0-2) 04/10/25 00:50
Lactic Acid 0.6 mmol/L (0.7-2.0) L 04/10/25 00:50
Microbiology Results
Micro:
04/10/25 03:30 Blood Culture - Pending
Blood/Venous
04/10/25 00:50 Blood Culture - Pending
Blood/Venous
US Breast Left Ltd 03/18/2025:
There is a complex fluid collection in the inferior left chest wall which is likely a postop seroma. Infection cannot be excluded.
Assessment / Plan
#Sepsis due to recurrent left breast cellulitis; completed 14-day course Augmentin on May 05, 2025
#BRCA positive: Prophylactic bilateral mastectomy in 11/2024. Breast reconstruction in 02/2025
#Leukocytosis
-Patient remained afebrile
-Blood culture pending
-Currently on vancomycin; switch to cefazolin
-Repeat CBC in the morning
- CT chest pending
-OR?? With plastic
#Conditions present prior to admission:
Chronic anemia
Anxiety disorder
Hypothyroidism
Care Review
Plan reviewed with: Physician
[2025-04-10] MEDS: TORADOL 10 MG IV (09:11)
--- NOTE | 2025-04-10 10:29 | CON.PS ---
Medical History
-
Chief Complaint: Left breast swelling redness
History of Present Illness:
Patient well-known to me for history of bilateral mastectomy with DENIS flap breast reconstruction. Did develop small wound healing issue on the left breast previously, self resolved. Was traveling and noticed her left breast was larger, red, warm
to touch. Was started on oral antibiotics. She presented to the emergency department when she felt systemically ill upon her arrival home.
Past Medical History
Past Medical History: Other
Past Surgical History: Other
Social History
Tobacco: Non-Smoker
Allergies / Home Medications
Allergy/AdvReac Type Severity Reaction Status Date / Time
apple Allergy itchy mouth Verified 04/10/25 00:23
shellfish derived Allergy Hives Verified 04/10/25 00:23
�Medication �Instructions �Recorded �Confirmed �Type
levothyroxine 100 mcg tablet 100 mcg PO HARRISON Thyroid 08/14/24 02/19/25 History
levothyroxine 50 mcg tablet 50 mcg PO MOTUWETHFRSA Thyroid 08/14/24 02/19/25 History
spironolactone 100 mg tablet 100 mg PO QPM ACNE; 08/14/24 02/19/25 History
cholecalciferol (vitamin D3) 50 50 mcg PO HS Supplement 10/30/24 02/19/25 History
mcg (2,000 unit) capsule (Vitamin
D3)
escitalopram oxalate 10 mg tablet 10 mg PO DAILY 02/13/25 02/19/25 History
(Lexapro)
Physical Exam
Vital Signs
Temp 98.1 F 04/10/25 07:04
Temp route: Oral 04/10/25 07:04
Pulse 82 04/10/25 09:03
Resp Rate 18 04/10/25 07:04
Blood pressure 101/61 04/10/25 09:03
Blood pressure extremity used: Left upper arm 04/10/25 07:04
Position: Lying 04/10/25 07:04
SaO2 100 04/10/25 07:04
Oxygen Mode of Delivery Room air 04/10/25 08:53
Acceptable pain level during hospitalization? 0 04/10/25 00:24
Can the patient verbally communicate their pain? Yes 04/10/25 09:11
Pain scale ratin 04/10/25 09:11
Actual Weight 151 lb 12.8 oz 04/10/25 06:00
Body Mass Index (BMI) 29.6 04/10/25 06:00
Physical exam:
No acute distress
No increased work of breathing
Bilateral breast flaps with well-healed surgical incisions
Left breast larger, erythema, palpable fluid collection
Right breast no erythema or tenderness, potentially palpable fluid collection
Lab Results
04/10/25 00:50
04/10/25 00:50
Assessment / Plan
-
Status post DENIS flap breast reconstruction with seroma, possibly superinfected
CT chest to evaluate fluid collections
IV antibiotics
Plan for OR tomorrow based on CT results
Data Reviewed
-
CT Scan: Image Personally Visualized and interpreted
[2025-04-10] MEDS: ANCEF 10 IV ×2 (13:25→21:43)
[2025-04-10 15:56] VITALS: BP 102/61
--- NOTE | 2025-04-10 15:58 | CM ---
Reviewed the chart notes and spoke with the patient at the bedside. The patient resides with her parents, children and sister in a two story home with two steps to enter. The patient has had [facility], but no SNF. The patient confirmed her pharmacy
of choice is [facility]. CM continues to be available to patient/family and is monitoring medical plan for needs at discharge.
Plan: Discharge plans will depend on the patient's progress.
[2025-04-10 23:29] VITALS: BP 111/72
[2025-04-11] VITALS (13 sets, daily range): BP systolic 10–109; BP diastolic 50–76
[2025-04-11] MEDS: ANCEF 10 IV ×3 (05:34→22:08)
[2025-04-11] MEDS: SYNTHROID 50 MCG PO (05:34)
--- NOTE | 2025-04-11 08:38 | W.PN.ID1 ---
Addendum entered and electronically signed by Anamaria Peters MD 04/11/25 14:34:
I saw and evaluated the patient. I reviewed the resident�s note and agree with findings and plan as documented in the resident�s note.
S: Pt just returned from OR. She is comfortable
O: Bilateral chest drains in place
A/P:
# Post-op left breast SSTI with MSSA
# Leukocytosis, improving
# Recent hx prophylactic b/l mastectomies with reconstruction 11/06/24 s/p revision with fat pad (no implants) 02/19/25
- CT: L>R fluid collections anterior soft tissues
- Blood cx's neg to date
- 04/11 s/p OR I+D of bilateral breasts by Plastics
OR cx's pending
- Continue cefazolin 2g IV q8h (d2)
- Trend wbc.
Original Note:
Date of Service
Date of Service: April 11, 2025
AFVSS. Offers no new complaints.
Today's Communication
OR I+D with plastics
Continue cefazolin for now
CBC in the a.m.
Assessment / Plan
#Sepsis due to recurrent left breast cellulitis; completed 14-day course Augmentin on May 05, 2025
# Postop left breast SSTI with MSSA
#BRCA positive: Prophylactic bilateral mastectomy in 11/2024. Breast reconstruction in 02/2025
#Leukocytosis; improved
-Patient remained afebrile
-Blood culture pending negative to date
-Continue with cefazolin 2 g IV every 8 hours for now
-CT chest with fluid collections within the anterior soft tissue of the chest bilateral L >R. Abscess cannot be excluded on the basis of the study
-OR I+D with plastics; appreciate if we can get OR Cx
#Conditions present prior to admission:
Chronic anemia
Anxiety disorder
Hypothyroidism
Chief Complaint
-: Other (Left breast redness; cellulitis)
Subjective / Review of Systems
Review of Systems: No Fever, No Chills, No Headache, No Pharyngitis, No Cough, No Sputum Production, No Chest Pain, No Palpitations, No Abdominal Pain, No Nausea, No Vomiting, No Diarrhea, No Dysuria, No Joint Pain and Other (Left breast redness and
pain)
Vital Signs / Physical Exam
Vital Signs
Vital Signs
Temp Pulse Resp BP Pulse Ox
98.4 F 85 18 104/56 97
04/11/25 07:35 04/11/25 07:35 04/11/25 07:35 04/11/25 07:35 04/11/25 07:35
Physical Exam
Constitutional: No Acute Distress and Comfortable
Cardiovascular: Regular Rate and S1/S2
Pulmonary: Clear, Symmetric and Non Labored
Gastrointestinal: Soft and Non Tender
Skin: Other (Left breast; erythematous with mild induration. No obvious drainage or collection. Mild tender to touch. Right breast unremarkable)
Neurological: Awake, Alert and Oriented
Psychological: Calm
Objective Data
Lab Data
Lab Results
04/10/25 00:50
Lactic Acid 0.6 mmol/L (0.7-2.0) L 04/10/25 00:50
Total Bilirubin 0.4 mg/dl (0.2-1.3) 04/10/25 00:50
AST 19 U/L (14-36) 04/10/25 00:50
ALT 23 U/L (0-35) 04/10/25 00:50
Alkaline Phosphatase 55 U/L (38-126) 04/10/25 00:50
Most recent labs reviewed.
Micro Results:
04/10/25 03:30 Blood Culture - Preliminary
Blood/Venous No Growth in 24 hours- Final report to follow
04/10/25 00:50 Blood Culture - Preliminary
Blood/Venous No Growth in 24 hours- Final report to follow
US Breast Left Ltd 03/18/2025:
There is a complex fluid collection in the inferior left chest wall which is likely a postop seroma. Infection cannot be excluded.
CT Chest With Iv Contrast 04/10/25:
Prior bilateral mastectomies with bilateral anterior chest wall reconstruction noted.
Crescentic fluid collections within the anterior soft tissues of the chest bilaterally significantly greater in size/volume in the left breast than the right breast and with some stranding on the left. No air bubbles within either fluid area.
Findings particularly in the left breast could represent an inflammatory process without definitive finding such as air bubbles or air-fluid level to confirm an abscess. Unfortunately, abscess cannot be excluded on the basis of this study
CT Scan: Image Reviewed and Report Reviewed
[2025-04-11 09:00] LABS: Hematocrit 32.7 % (37.0-47.0); Hemoglobin 10.1 g/dL (12.0-16.0); Mean Corp Hgb Conc. 30.9 g/dL (33.0-37.0); Mean Corpuscular Volume 81.5 fL (81.0-99.0); Nucleated Red Blood Cells % 0 %; Platelet Count 369 10^3/uL (130-400); Red Cell Dist. Width 15.9 % (11.5-14.5)
[2025-04-11] MEDS: LEXAPRO 10 MG PO (09:02)
[2025-04-11] MEDS: ALDACTONE 100 MG PO (09:03)
--- NOTE | 2025-04-11 09:31 | PTCARENOTE ---
Patient to OR for L breast washout. NPO since midnight. CHG bath and fresh linens provided. Report called to Angelina in OR. Patient transported in bed with chart.
[2025-04-11] MEDS: DILAUDID 0.25 MG IV ×2 (12:08→14:22)
--- NOTE | 2025-04-11 12:30 | PTCARENOTE ---
Received patient from PACU s/p B/L breast I+D. VSS, patient medicated with PRN IV Dilaudid for B/L breast discomfort -see OCT. B/L breast covered in gauze/ABD dressing from OR, surgical bra in place, dressing C/D/I. B/L DOMENIC drains in place with
sanguinous output.
--- NOTE | 2025-04-11 13:53 | W.PN.HOSP.TC ---
Today's Communication/Plan
-
Continue antibiotics
Await cultures
Resume diet
Assessment / Plan
Assessment / Plan
Gen-AAOx3, NAD
HEENT-NC, AT, anicteric, clear oral mm
Neck-supple
CV-reg, no M, +S1/S2
Lungs-clear B/L
Abd-soft, NT, ND
Ext-no edema
Musculoskeletal-no cyanosis, clubbing
Skin-warm and dry, left breast with mild erythema laterally and under breast without any drainage from surgical site.
Neuro-grossly non-focal
Psych-calm, cooperative
Sepsis due to recurrent left breast skin/soft tissue infection -clinically improving, WBC count coming down. Afebrile. Continue cefazolin per ID.
Blood cultures negative so far.
CT chest shows bilateral crescentic fluid collections in both breasts, greater in size and volume in the left breast. No definite air bubbles seen or air-fluid level.
Patient went to the OR for drainage, 04/11. OR report pending. Fluid culture sent for Gram stain and culture.
Chronic anemia -hemoglobin at baseline.
BRCA positive -underwent prophylactic bilateral mastectomies November 2024. Breast reconstruction February 2025.
Anxiety disorder -continue Lexapro.
Hypothyroidism -continue levothyroxine.
Full code
Anticipated Discharge: > 48 hours
Subjective/Interval History
-
Date of Service: April 11, 2025
Patient seen and examined. Back from the OR today. Complaining of some soreness.
Objective Data
-
Labs:
Laboratory Results
04/11/25
08:01
WBC 11.8 H
Hgb 10.1 L
Hct 32.7 L
Plt Count 369
Vital Signs:
Vital Signs
Temp Pulse Resp BP Pulse Ox
98.2 F 75 16 95/59 96
04/11/25 13:33 04/11/25 13:33 04/11/25 13:33 04/11/25 13:33 04/11/25 13:33
I&O
04/10/25 04/11/25 04/12/25
06:59 06:59 06:59
Intake Total 1200 / 1200 200 / 200
Output Total 40 / 40
Balance 1200 / 1200 160 / 160
Review of Systems
-
History Source: Patient
All other systems: Reviewed and negative
--- NOTE | 2025-04-11 14:03 | CM ---
Reviewed the chart notes and spoke with the patient at the bedside. Patient went to the OR today for drainage, culture sent for Gram stain and culture. Continues on IV abx. CM continues to be available to patient/family and is monitoring medical
plan for needs at discharge.
Plan: Discharge plans will depend on the patient's progress.
--- NOTE | 2025-04-11 14:09 | W.IMMPOSTOP ---
Surgical Immed Post Op Note
-
Primary Surgeon: PRAVEEN Cortes MD
Assisting Surgeon:
Pre-op Diagnosis: Status post bilateral DENIS flaps, seroma
Post-op Diagnosis: Same
Procedure Performed: Bilateral excision of seroma, breasts
Anesthesia Type: General
Specimen / Cultures: Right breast capsule, right and left breast fluid for culture
Estimated Blood Loss: 30 cc
Complications: None
Operative Findings: As expected
--- NOTE | 2025-04-11 14:09 | OR.RPT ---
Operative Report
Operative Report
Date of surgery: 04/11/2025
Surgeon: PRAVEEN Cortes MD
Preoperative diagnosis: History of bilateral mastectomy, bilateral DENIS flap, seroma
Postoperative diagnosis: Same
Procedure:
1. Right breast capsulectomy
2. Incision and drainage of bilateral breast seromas
Complications: None
EBL: 30 cc
Specimens: Right breast capsule
Culture: Right and left breast fluid
Indications for procedure: Patient is a 30-year-old female well-known to me for having undergone staged sparing mastectomy with DENIS flap reconstruction. She followed a routine postoperative course save for some wound healing issues in the left
breast. This was self resolved with antibiotics and wound care. She recently developed new onset swelling and redness of the left breast. She presented to the ED for evaluation as she felt systemically ill. There was concern for superinfected
seroma. CT chest was performed and confirmed that bilateral seromas were in place, with stranding on the left. Plan was made for operative washout of the left breast seroma and capsulectomy and washout of the right breast to prevent future
superinfection. Consents were signed and risks were reviewed at length. She desired to proceed
Procedure in detail: Patient was identified preoperatively and the surgical site was confirmed to be the bilateral breast. All questions were answered consents were confirmed. Patient was taken back to the operative room placed supine on the
table. Anesthesia was induced the patient was prepped and draped in usual sterile fashion using ChloraPrep solution. Timeout for patient safety was performed was confirmed the bilateral SCDs were in place and preoperative antibiotics have been
administered. Procedure began first on the right nonaffected side where an incision was made at the previous scar along the inframammary fold. Bovie electrocautery was used to dissect out the capsule that was between the mastectomy skin flap and
the DENIS flap. Fluid cultures were sent and a drain was placed in the space. A total capsulectomy of the seroma pocket was performed of the right breast. The wound was then closed in layers with INSORB stapler followed by 3-0 Monocryl sutures.
Attention was then drawn to the left breast where an incision was made along the inframammary fold previous scar. Dissection continued with Bovie electrocautery until the seroma pocket was encountered. Fluid cultures were sent. The pocket was
thoroughly irrigated and debrided removing any fibrinous slough. Given the inflammation of the area there was no definitive capsule for capsulectomy performed on the left. As such a combination of saline and hydroperoxide was used to irrigate and
irritate the superficial tissues to promote adhesion. A drain was placed in the left breast as well. The wound was then closed in layers with INSORB stapler followed by 3-0 Monocryl sutures. Patient tolerated procedure well was performed out
complication, all counts were correct at the end the case. She was extubated taken the PACU further care
[2025-04-12] MEDS: DILAUDID 0.25 MG IV ×3 (00:56→19:37)
[2025-04-12 03:01] VITALS: BP 103/60
[2025-04-12] MEDS: SYNTHROID 50 MCG PO (05:19)
[2025-04-12] MEDS: ANCEF 10 IV ×3 (05:19→21:27)
[2025-04-12 07:45] VITALS: BP 101/62
[2025-04-12] MEDS: ALDACTONE 100 MG PO (08:50)
[2025-04-12] MEDS: LEXAPRO 10 MG PO (08:50)
[2025-04-12 09:05] LABS: Hematocrit 31.0 % (37.0-47.0); Hemoglobin 9.9 g/dL (12.0-16.0); Mean Corp Hgb Conc. 31.9 g/dL (33.0-37.0); Mean Corpuscular Volume 80.9 fL (81.0-99.0); Nucleated Red Blood Cells % 0 %; Platelet Count 384 10^3/uL (130-400); Red Cell Dist. Width 15.9 % (11.5-14.5)
--- NOTE | 2025-04-12 09:15 | W.PN.PLAS ---
Today's Communication
-
Okay to discharge with antibiotic plan
Progress Note
Subjective Data
Doing well, pain much improved, denies shortness of breath
Objective Data
Vital Signs
Temp Pulse Resp BP Pulse Ox
99.0 F 82 20 101/62 100
04/12/25 07:45 04/12/25 07:45 04/12/25 07:45 04/12/25 07:45 04/12/25 07:45
Intake and Output
04/11/25 04/12/25 04/13/25
06:59 06:59 06:59
Intake Total 1200 / 1200 1160 / 1160
Output Total 90 / 90
Balance 1200 / 1200 1070 / 1070
Intake:
Oral fluids 1200 / 1200 960 / 960
IV fluids (Total) 200 / 200
Normosol 200 / 200
Output:
Drain Output (Total) 90 / 90
Left Breast Andrei-Petersen 60 / 60
Right Breast Andrei-Petersen 30 / 30
Other:
Number of approximated MODERATE 1 2
amounts of urine
Physical exam:
No acute distress
No increased work of breathing
Right breast with drain in place, no issues
Left breast with improved erythema, drain in place, no issues
Lab Results
04/12/25 08:26
04/10/25 00:50
Microbiology Results
04/10/25 03:30 Blood/Venous Blood Culture - Preliminary
No Growth in 48 hours- Final report to follow
04/10/25 00:50 Blood/Venous Blood Culture - Preliminary
No Growth in 48 hours- Final report to follow
04/11/25 11:00 Breast - Left Gram Stain - Preliminary
04/11/25 11:00 Breast - Right Gram Stain - Preliminary
Assessment / Plan
Bilateral breast seromas after DENIS flap, left superinfected seroma
Reviewed the plan at length, we will keep the drains for approximately 1 week from today minimum
Awaiting culture data to finalize, Gram stain negative at present
Continue antibiotics and narrow to oral based on culture data
--- NOTE | 2025-04-12 10:00 | W.PN.ID1 ---
Date of Service
Date of Service: April 12, 2025
Today's Communication
Continue cefazolin.
Assessment / Plan
# Post-op left breast SSTI with MSSA
# Leukocytosis
# Recent hx prophylactic b/l mastectomies with reconstruction 11/06/24 s/p revision with fat pad (no implants) 02/19/25
- CT: L>R fluid collections anterior soft tissues
- Blood cx's neg to date
- 04/11 s/p OR I+D of bilateral breasts by Plastics
Left breast OR cx: Staph aureus
Right breast OR cx: neg to date
- Continue cefazolin 2g IV q8h (d3)
- Trend wbc.
#Conditions present prior to admission:
Chronic anemia
Anxiety disorder
Hypothyroidism
Chief Complaint
-: Other (Left breast redness; cellulitis)
Subjective / Review of Systems
Comfortable
Vital Signs / Physical Exam
Vital Signs
Vital Signs
Temp Pulse Resp BP Pulse Ox
99.0 F 82 20 101/62 100
04/12/25 07:45 04/12/25 07:45 04/12/25 07:45 04/12/25 07:45 04/12/25 07:45
Physical Exam
Constitutional: No Acute Distress
Cardiovascular: Regular Rate and S1/S2
Pulmonary: Clear
Gastrointestinal: Soft, Non Tender, Non Distended and Normal Bowel Sounds
Extremities: Negative Edema
Wound: Other (Left breast decreased erythema and induration, DOMENIC drain with cloudy sero-sang fluid; R breast no erythema, DOMENIC drain sero-sang fluid)
Objective Data
Lab Data
Lab Results
04/12/25 08:26
04/10/25 00:50
Lactic Acid 0.6 mmol/L (0.7-2.0) L 04/10/25 00:50
Total Bilirubin 0.4 mg/dl (0.2-1.3) 04/10/25 00:50
AST 19 U/L (14-36) 04/10/25 00:50
ALT 23 U/L (0-35) 04/10/25 00:50
Alkaline Phosphatase 55 U/L (38-126) 04/10/25 00:50
Most recent labs reviewed.
Micro Results:
04/11/25 11:00 Wound Culture - Preliminary
Breast - Left Staphylococcus aureus
Gram Stain - Preliminary
04/11/25 11:00 Anaerobic Culture - Preliminary
Breast - Right Culture pending. Anaerobic cultures are examined after 3
days incubation. Additional information to follow.
04/11/25 11:00 Wound Culture - Preliminary
Breast - Right No growth
Gram Stain - Preliminary
04/10/25 03:30 Blood Culture - Preliminary
Blood/Venous No Growth in 48 hours- Final report to follow
04/10/25 00:50 Blood Culture - Preliminary
Blood/Venous No Growth in 48 hours- Final report to follow
04/11/25 11:00 Anaerobic Culture - Pending
Breast - Left
US Breast Left Ltd 03/18/2025:
There is a complex fluid collection in the inferior left chest wall which is likely a postop seroma. Infection cannot be excluded.
CT Chest With Iv Contrast 04/10/25:
Prior bilateral mastectomies with bilateral anterior chest wall reconstruction noted.
Crescentic fluid collections within the anterior soft tissues of the chest bilaterally significantly greater in size/volume in the left breast than the right breast and with some stranding on the left. No air bubbles within either fluid area.
Findings particularly in the left breast could represent an inflammatory process without definitive finding such as air bubbles or air-fluid level to confirm an abscess. Unfortunately, abscess cannot be excluded on the basis of this study
--- NOTE | 2025-04-12 11:06 | W.PN.HOSP.TC ---
Today's Communication/Plan
-
Continue antibiotics
Bowel regimen
Assessment / Plan
Assessment / Plan
Gen-AAOx3, NAD
HEENT-NC, AT, anicteric, clear oral mm
Neck-supple
CV-reg, no M, +S1/S2
Lungs-clear B/L
Abd-soft, NT, ND
Ext-no edema
Musculoskeletal-no cyanosis, clubbing
Skin-warm and dry, left breast with mild erythema laterally and under breast without any drainage from surgical site.
Neuro-grossly non-focal
Psych-calm, cooperative
Sepsis due to superinfected left breast seroma -clinically improving, WBC count 12.6k today. Afebrile. Continue cefazolin per ID.
Blood cultures negative so far. Wound culture from OR shows Staph aureus, sensitivity pending.
CT chest shows bilateral crescentic fluid collections in both breasts, greater in size and volume in the left breast. No definite air bubbles seen or air-fluid level. Clinical diagnosis is bilateral breast seromas.
Patient went to the OR for drainage, 04/11. Underwent right breast capsulectomy, incision and drainage of bilateral breast seromas.
Bilateral drains remain in place and plastics recommends continuing for 7 days.
ID anticipates discharging home on IV antibiotics in a few days.
Constipation -suspect due to opioids, acute illness. Bowel regimen ordered. Encouraged ambulation. Minimize opiates.
Chronic anemia -hemoglobin at baseline.
BRCA positive -underwent prophylactic bilateral mastectomies November 2024. Breast reconstruction February 2025.
Anxiety disorder -continue Lexapro.
Hypothyroidism -continue levothyroxine.
Full code
Anticipated Discharge: > 48 hours
Subjective/Interval History
-
Date of Service: April 12, 2025
Patient seen and examined. Pain is under control. Complaining of constipation.
Objective Data
-
Labs:
Laboratory Results
04/12/25
08:26
WBC 12.6 H
Hgb 9.9 L
Hct 31.0 L
Plt Count 384
Vital Signs:
Vital Signs
Temp Pulse Resp BP Pulse Ox
99.0 F 82 20 101/62 100
04/12/25 07:45 04/12/25 07:45 04/12/25 07:45 04/12/25 07:45 04/12/25 07:45
I&O
04/11/25 04/12/25 04/13/25
06:59 06:59 06:59
Intake Total 1200 / 1200 1160 / 1160
Output Total 90 / 90
Balance 1200 / 1200 1070 / 1070
Review of Systems
-
History Source: Patient
All other systems: Reviewed and negative
[2025-04-12 11:13] VITALS: BP 146/53
[2025-04-12] MEDS: FLUSH (NSS) 2 FLUSH IV ×4 (12:23→21:27)
[2025-04-12] MEDS: MIRALAX 17 GRAMS PO (12:24)
[2025-04-12 15:49] VITALS: BP 98/50
[2025-04-12] MEDS: LOVENOX 40 MG SC (18:13)
[2025-04-12] MEDS: SENOKOT-S PO (19:37)
[2025-04-12 23:03] VITALS: BP 104/59
[2025-04-13] MEDS: ANCEF 10 IV ×3 (06:34→21:20)
[2025-04-13] MEDS: FLUSH (NSS) 2 FLUSH IV (06:36)
[2025-04-13] MEDS: SYNTHROID 100 MCG PO (06:36)
[2025-04-13 07:50] VITALS: BP 102/62
[2025-04-13 07:58] LABS: Hematocrit 31.6 % (37.0-47.0); Hemoglobin 9.6 g/dL (12.0-16.0); Mean Corp Hgb Conc. 30.4 g/dL (33.0-37.0); Mean Corpuscular Volume 83.4 fL (81.0-99.0); Nucleated Red Blood Cells % 0 %; Platelet Count 397 10^3/uL (130-400); Red Cell Dist. Width 15.8 % (11.5-14.5)
--- NOTE | 2025-04-13 08:36 | W.PN.ID1 ---
Date of Service
Date of Service: April 13, 2025
Today's Communication
Continue cephalexin.
Assessment / Plan
# Post-op left breast SSTI with MSSA
# Leukocytosis - resolved
# Recent hx prophylactic b/l mastectomies with reconstruction 11/06/24 s/p revision with fat pad (no implants) 02/19/25
- CT: L>R fluid collections anterior soft tissues
- Blood cx's neg to date
- 04/11 s/p OR I+D of bilateral breasts by Plastics
Left breast OR cx: Staph aureus
Right breast OR cx: neg to date
- Continue cefazolin 2g IV q8h (d4)
- Since no foreign body in place, at time of discharge can transition to high dose cephalexin 1000mg po q8h through 04/25/25.
#Conditions present prior to admission:
Chronic anemia
Anxiety disorder
Hypothyroidism
Chief Complaint
-: Other (Left breast redness; cellulitis)
Subjective / Review of Systems
feeling better
Vital Signs / Physical Exam
Vital Signs
Vital Signs
Temp Pulse Resp BP Pulse Ox
97.9 F 75 20 102/62 99
04/13/25 07:50 04/13/25 07:50 04/13/25 07:50 04/13/25 07:50 04/12/25 23:03
Physical Exam
Constitutional: No Acute Distress and Comfortable
Cardiovascular: Regular Rate and S1/S2
Pulmonary: Clear
Gastrointestinal: Soft, Non Tender and Non Distended
Physical Exam:
Chest: bilateral DOMENIC drains clear sero-sang fluid. Left chest erythema continues to decrease, edema improving, softer
Objective Data
Lab Data
Lab Results
04/13/25 06:39
04/10/25 00:50
Lactic Acid 0.6 mmol/L (0.7-2.0) L 04/10/25 00:50
Total Bilirubin 0.4 mg/dl (0.2-1.3) 04/10/25 00:50
AST 19 U/L (14-36) 04/10/25 00:50
ALT 23 U/L (0-35) 04/10/25 00:50
Alkaline Phosphatase 55 U/L (38-126) 04/10/25 00:50
Most recent labs reviewed.
Micro Results:
04/10/25 03:30 Blood Culture - Preliminary
Blood/Venous No Growth in 72 hours- Final report to follow
04/10/25 00:50 Blood Culture - Preliminary
Blood/Venous No Growth in 72 hours- Final report to follow
04/11/25 11:00 Anaerobic Culture - Preliminary
Breast - Left Culture pending. Anaerobic cultures are examined after 3
days incubation. Additional information to follow.
04/11/25 11:00 Wound Culture - Preliminary
Breast - Left Staphylococcus aureus
Gram Stain - Preliminary
04/11/25 11:00 Anaerobic Culture - Preliminary
Breast - Right Culture pending. Anaerobic cultures are examined after 3
days incubation. Additional information to follow.
04/11/25 11:00 Wound Culture - Preliminary
Breast - Right No growth
Gram Stain - Preliminary
US Breast Left Ltd 03/18/2025:
There is a complex fluid collection in the inferior left chest wall which is likely a postop seroma. Infection cannot be excluded.
CT Chest With Iv Contrast 04/10/25:
Prior bilateral mastectomies with bilateral anterior chest wall reconstruction noted.
Crescentic fluid collections within the anterior soft tissues of the chest bilaterally significantly greater in size/volume in the left breast than the right breast and with some stranding on the left. No air bubbles within either fluid area.
Findings particularly in the left breast could represent an inflammatory process without definitive finding such as air bubbles or air-fluid level to confirm an abscess. Unfortunately, abscess cannot be excluded on the basis of this study
[2025-04-13] MEDS: ALDACTONE PO (09:17)
[2025-04-13] MEDS: SENOKOT-S PO (09:18)
[2025-04-13] MEDS: MIRALAX 17 GRAMS PO (09:18)
[2025-04-13] MEDS: LEXAPRO 10 MG PO (09:19)
--- NOTE | 2025-04-13 11:15 | W.PN.HOSP.TC ---
Today's Communication/Plan
-
Continue current care
Assessment / Plan
Assessment / Plan
Gen-AAOx3, NAD
HEENT-NC, AT, anicteric, clear oral mm
Neck-supple
CV-reg, no M, +S1/S2
Lungs-clear B/L
Abd-soft, NT, ND
Ext-no edema
Musculoskeletal-no cyanosis, clubbing
Skin-warm and dry, left breast with mild erythema laterally and under breast without any drainage from surgical site.
Neuro-grossly non-focal
Psych-calm, cooperative
Sepsis due to superinfected left breast seroma -clinically improving, leukocytosis resolved. Afebrile. Continue cefazolin per ID.
Blood cultures negative so far. Wound culture of left breast from the OR shows MSSA. Sensitivities reviewed.
CT chest shows bilateral crescentic fluid collections in both breasts, greater in size and volume in the left breast. No definite air bubbles seen or air-fluid level. Clinical diagnosis is bilateral breast seromas.
Patient went to the OR for drainage, 04/11. Underwent right breast capsulectomy, incision and drainage of bilateral breast seromas.
Bilateral drains remain in place and plastics recommends continuing for 7 days. Patient to follow-up with plastic surgery on Monday, April 18 in the office for drain removal.
I spoke with ID, recommend 1 more day of IV antibiotics and discharge on Monday if stable. Will be discharged on cephalexin.
Constipation -resolved.
Chronic anemia -hemoglobin at baseline.
BRCA positive -underwent prophylactic bilateral mastectomies November 2024. Breast reconstruction February 2025.
Anxiety disorder -continue Lexapro.
Hypothyroidism -continue levothyroxine.
Full code
Dispo -likely discharge Monday if stable on oral antibiotics.
Anticipated Discharge: Within 24 hours
Subjective/Interval History
-
Date of Service: April 13, 2025
Patient seen and examined. No complaints.
Objective Data
-
Labs:
Laboratory Results
04/13/25
06:39
WBC 8.5
Hgb 9.6 L
Hct 31.6 L
Plt Count 397
Vital Signs:
Vital Signs
Temp Pulse Resp BP Pulse Ox
97.9 F 75 20 102/62 99
04/13/25 07:50 04/13/25 09:17 04/13/25 07:50 04/13/25 09:17 04/12/25 23:03
I&O
04/12/25 04/13/25 04/14/25
06:59 06:59 06:59
Intake Total 1160 / 1160 1320 / 1320
Output Total 90 / 90 40 / 40
Balance 1070 / 1070 1280 / 1280
Review of Systems
-
History Source: Patient
All other systems: Reviewed and negative
[2025-04-13 15:53] VITALS: BP 114/65
[2025-04-13] MEDS: LOVENOX 40 MG SC (17:46)
[2025-04-13] MEDS: SENOKOT-S 1 TABLET PO (21:00)
[2025-04-13] MEDS: TORADOL 10 MG IV (21:25)
[2025-04-13 23:31] VITALS: BP 104/65
[2025-04-14] MEDS: SYNTHROID 50 MCG PO (05:27)
[2025-04-14] MEDS: ANCEF 10 IV (05:27)
[2025-04-14 07:36] VITALS: BP 87/49
--- NOTE | 2025-04-14 08:37 | W.PN.ID1 ---
Addendum entered and electronically signed by Anamaria Peters MD 04/14/25 12:11:
I saw and evaluated the patient. I reviewed the resident�s note and agree with findings and plan as documented in the resident�s note.
Exam: left breast erythema resolved, edema resolving
# Post-op left breast SSTI with MSSA
# Leukocytosis - resolved
# Recent hx prophylactic b/l mastectomies with reconstruction 11/06/24 s/p revision with fat pad (no implants) 02/19/25
- CT: L>R fluid collections anterior soft tissues
- Blood cx's neg to date
- 9/5 s/p OR I+D of bilateral breasts by Plastics
Left breast OR cx: Staph aureus (MSSA)
Right breast OR cx: neg to date
- DC cefazolin 2g IV q8h (d5)
- Since no foreign body in place, can transition to high dose cephalexin 1000mg po q8h through 04/25/25.
Original Note:
Date of Service
Date of Service: April 14, 2025
AFVSS. Offers no new complaints.
Today's Communication
At time of discharge can transition to high dose cephalexin 1000mg po q8h through 04/25/25.
Assessment / Plan
# Post-op left breast SSTI with MSSA
# Leukocytosis - resolved
# Recent hx prophylactic b/l mastectomies with reconstruction 11/06/24 s/p revision with fat pad (no implants) 02/19/25
- CT: L>R fluid collections anterior soft tissues
- Blood cx's neg to date
- 9/5 s/p OR I+D of bilateral breasts by Plastics
Left breast OR cx: Staph aureus
Right breast OR cx: neg to date
- Continue cefazolin 2g IV q8h (d5)
- Since no foreign body in place, at time of discharge can transition to high dose cephalexin 1000mg po q8h through 04/25/25.
#Conditions present prior to admission:
Chronic anemia
Anxiety disorder
Hypothyroidism
Chief Complaint
-: Other (Left breast redness; cellulitis)
Subjective / Review of Systems
Review of Systems: No Fever, No Chills, No Cough, No Chest Pain, No Palpitations, No Nausea, No Diarrhea, No Dysuria and No Skin Rash
Vital Signs / Physical Exam
Vital Signs
Vital Signs
Temp Pulse Resp BP Pulse Ox
98.1 F 64 18 87/49 97
04/14/25 07:36 04/14/25 07:36 04/14/25 07:36 04/14/25 07:36 04/14/25 07:36
Physical Exam
Constitutional: No Acute Distress and Comfortable
Cardiovascular: Regular Rate
Pulmonary: Clear and Non Labored
Neurological: Awake, Alert and Oriented
Psychological: Calm
Physical Exam:
Chest: bilateral DOMENIC drains clear sero-sang fluid. Left chest erythema continues to decrease.
Objective Data
Lab Data
Lab Results
04/13/25 06:39
04/10/25 00:50
Lactic Acid 0.6 mmol/L (0.7-2.0) L 04/10/25 00:50
Total Bilirubin 0.4 mg/dl (0.2-1.3) 04/10/25 00:50
AST 19 U/L (14-36) 04/10/25 00:50
ALT 23 U/L (0-35) 04/10/25 00:50
Alkaline Phosphatase 55 U/L (38-126) 04/10/25 00:50
Most recent labs reviewed.
Microbiology: Report Reviewed
Micro Results:
04/10/25 03:30 Blood Culture - Preliminary
Blood/Venous No Growth in 4 days- Final report to follow
04/10/25 00:50 Blood Culture - Preliminary
Blood/Venous No Growth in 4 days- Final report to follow
04/11/25 11:00 Anaerobic Culture - Preliminary
Breast - Left Culture pending. Anaerobic cultures are examined after 3
days incubation. Additional information to follow.
04/11/25 11:00 Wound Culture - Preliminary
Breast - Left S aureus-Methicillin Sensitive
Gram Stain - Preliminary
04/11/25 11:00 Anaerobic Culture - Preliminary
Breast - Right Culture pending. Anaerobic cultures are examined after 3
days incubation. Additional information to follow.
04/11/25 11:00 Wound Culture - Preliminary
Breast - Right No growth
Gram Stain - Preliminary
US Breast Left Ltd 03/18/2025:
There is a complex fluid collection in the inferior left chest wall which is likely a postop seroma. Infection cannot be excluded.
CT Chest With Iv Contrast 04/10/25:
Prior bilateral mastectomies with bilateral anterior chest wall reconstruction noted.
Crescentic fluid collections within the anterior soft tissues of the chest bilaterally significantly greater in size/volume in the left breast than the right breast and with some stranding on the left. No air bubbles within either fluid area.
Findings particularly in the left breast could represent an inflammatory process without definitive finding such as air bubbles or air-fluid level to confirm an abscess. Unfortunately, abscess cannot be excluded on the basis of this study
[2025-04-14] MEDS: SENOKOT-S 1 TABLET PO (08:46)
[2025-04-14] MEDS: MIRALAX PO (08:49)
[2025-04-14] MEDS: ALDACTONE 100 MG PO (08:49)
[2025-04-14] MEDS: LEXAPRO 10 MG PO (08:49)
[2025-04-14 09:00] VITALS: BP 110/63
--- NOTE | 2025-04-14 11:33 | W.DCSUMMARY ---
Discharge Summary
Discharge Data
Date of Admission: 04/10/25
Date of Discharge: 04/14/25
Total time spent discharging patient (in min): 45
-
Pending Results: No
Hospital Course
Ms. Mak is a 30-year-old female who is status post preventative bilateral mastectomy (November 2024, revision February 2025) who presented with pain and erythema of her left breast. She was treated with an extended course of outpatient antibiotics
however her symptoms returned after discontinuing antibiotics. She was started on broad-spectrum antibiotics in the ED which were later narrowed to cefazolin following culture results growing MSSA. Imaging showed bilateral breast seromas with
stranding on the left. She was brought to the OR on 04/11/2025 with plastic surgery for washout of left breast seroma and capsulectomy/washout of right breast to prevent future superinfection. She tolerated the procedure well. Postoperative drains
were left in place and output is minimal. She will be transitioned to oral cephalexin 1 g every 8 hours through 04/25/2025 for discharge to home. She will need to follow-up with her plastic surgeon in the outpatient clinic for further management
including drain monitoring and removal. At time of hospital discharge she was medically stable.
General: No Apparent Distress, Comfortable and Conversant
HEENT: NormoCephalic, Moist mucous membranes, Atraumatic
Respiratory: Clear and Non Labored Respirations
Cardiac: S1/S2 and Regular Rhythm; No Rub or Gallop
GI: Soft, Non Tender, Non Distended and Normal Bowel Sounds
Musculoskeletal: No Edema, bilateral mastectomies with postoperative drains in place with minimal serosanguineous output
: NO Smith
Neuro: Awake, Alert, Nonfocal/grossly intact
Psych: Calm and Intact Judgment/Insight
Discharge Plan
-
Patient Disposition: Home (Routine Discharge)
Discharge Diagnosis/Procedures: Left breast cellulitis
Activity Restrictions/Additional Instructions:
Ms. Mak is a 30-year-old female who is status post preventative bilateral mastectomy (November 2024, revision February 2025) who presented with pain and erythema of her left breast. She was treated with an extended course of outpatient antibiotics
however her symptoms returned after discontinuing antibiotics. She was started on broad-spectrum antibiotics in the ED which were later narrowed to cefazolin following culture results growing MSSA. Imaging showed bilateral breast seromas with
stranding on the left. She was brought to the OR on 04/11/2025 with plastic surgery for washout of left breast seroma and capsulectomy/washout of right breast to prevent future superinfection. She tolerated the procedure well. Postoperative drains
were left in place and output is minimal. She will be transitioned to oral cephalexin 1 g every 8 hours through 04/25/2025 for discharge to home. She will need to follow-up with her plastic surgeon in the outpatient clinic for further management
including drain monitoring and removal. At time of hospital discharge she was medically stable.
Referrals:
Shelley Ch DO [Family Provider]
Andrea Cortes MD [Active, Plastic Surgery]
Prescriptions:
New
cephalexin 500 mg capsule
1,000 mg PO Q8H 12 Days Qty: 72 0RF
Continued
spironolactone 100 mg Tablet
100 mg PO QPM
levothyroxine 100 mcg Tablet
100 mcg PO HARRISON
levothyroxine 50 mcg Tablet
50 mcg PO MOTUWETHFRSA
cholecalciferol (vitamin D3) [Vitamin D3] 50 mcg (2,000 unit) Capsule
50 mcg PO HS
escitalopram oxalate [Lexapro] 10 mg Tablet
10 mg PO DAILY
Discharge Orders:
Discharge Patient (As Directed); Ordered 04/14/25
Ordered By: Markie Montanez
Discharge Date and Time
Print Language: MONGOLIAN
--- NOTE | 2025-04-14 12:06 | CM ---
Reviewed the chart notes and spoke with the patient at the bedside. Patient to be discharged with drains. Discussed [facility] services. Patient selected VN. Referral sent in [facility]. Patient's mother to provide transportation home today.
Plan: Discharge to home with VN services.
== END 2025-04-14 12:40 | disposition home health service (06) | DRG 854 ==
LOC: 2 NORTH 04:50
PROVIDERS: Emergency Medicine; Hospitalist; ADMITTING PHYSICIAN Internal Medicine; ATTENDING PHYSICIAN Internal Medicine; CONSULT PHYSICIAN Internal Medicine Infectious Disease; CONSULT PHYSICIAN Surgery Plastic and Reconstructive Surgery; EMERGENCY PHYSICIAN Emergency Medicine; FAMILY PHYSICIAN Family Medicine
PROC: 0H9V0ZZ Drainage of Bilateral Breast, Open Approach (ICD-10-PCS; 2025-04-11)
PROC: 0HP Skin and Breast, Removal (ICD-10-PCS; 2025-04-11)
DX: A41.9 Sepsis, unspecified organism (principal); M96.843 Postprocedural seroma of a musculoskeletal structure following other procedure; N61.0 Mastitis without abscess; F41.9 Anxiety disorder, unspecified; N61.1 Abscess of the breast and nipple; E03.9 Hypothyroidism, unspecified; D64.9 Anemia, unspecified; F32.A Depression, unspecified; N80.03 Adenomyosis of the uterus; K59.03 Drug induced constipation; T40.2X5A Adverse effect of other opioids, initial encounter; Y92.239 Unspecified place in hospital as the place of occurrence of the external cause; Y83.8 Other surgical procedures as the cause of abnormal reaction of the patient, or of later complication, without mention of misadventure at the time of the procedure; Y92.9 Unspecified place or not applicable; Z15.01 Genetic susceptibility to malignant neoplasm of breast; Z90.13 Acquired absence of bilateral breasts and nipples; Z79.890 Hormone replacement therapy; Z91.013 Allergy to seafood; Z91.018 Allergy to other foods
CPT/HCPCS: 71260; 80053; 83605; 84703; 85025; 87040; 87070; 87075; 87147; 87186; 87205; 88304; C1729; Q9967

== ENCOUNTER 2025-08-06 06:02 | Day surgery (SDC) | payer OTHER, SELFPAY ==
[2025-07-08 08:58] LABS: Hematocrit 38.5 % (37.0-47.0); Hemoglobin 12.0 g/dL (12.0-16.0); Mean Corp Hgb Conc. 31.2 g/dL (33.0-37.0); Mean Corpuscular Volume 84.6 fL (81.0-99.0); Nucleated Red Blood Cells % 0 %; Platelet Count 383 10^3/uL (130-400); Red Cell Dist. Width 16.3 % (11.5-14.5)
[2025-07-08 09:55] LABS: ALT (SGPT) 11 U/L (0-35); AST (SGOT) 16 U/L (14-36); Albumin 4.7 g/dl (3.5-5.0); Alkaline Phosphatase 43 U/L (38-126); Blood Urea Nitrogen 13 mg/dl (7-17); Calcium 9.4 mg/dl (8.4-10.2); Carbon Dioxide 30 mmol/L (22-30); Chloride 104 mmol/L (98-107); Glucose 86 mg/dl (70-99); Potassium 4.9 mmol/L (3.5-5.1); Sodium 139 mmol/L (135-145); Total Protein 7.8 g/dl (6.3-8.2); eGFR > 60.00
[2025-07-08 14:34] VITALS: BMI 28.1
[2025-08-06] VITALS (10 sets, daily range): BP systolic 84–119; BP diastolic 50–86; BMI 28.1
[2025-08-06] MEDS: NORMOSOL-R/PLASMALYTE-A 1000 IV (10:50)
[2025-08-06] MEDS: TYLENOL 1000 MG PO (11:02)
[2025-08-06] MEDS: EMEND 40 MG PO (12:19)
[2025-08-06] MEDS: TRANSDERM-SCOP 1 PATCH TRANSDERM (12:19)
--- NOTE | 2025-08-06 16:54 | W.IMMPOSTOP ---
Surgical Immed Post Op Note
-
Primary Surgeon: PRAVEEN Cortes MD
Assisting Surgeon:
Pre-op Diagnosis: Status post bilateral mastectomy
Post-op Diagnosis: Same
Procedure Performed: Bilateral breast reconstruction revisions, fat grafting to bilateral breast, bilateral insertion of silicone gel breast implants for breast reconstruction, left abdominal dogear excision
Anesthesia Type: General
Specimen / Cultures: None
Estimated Blood Loss: 30 cc
Complications: None
Operative Findings: As expected
--- NOTE | 2025-08-06 16:54 | OR.RPT ---
Operative Report
Operative Report
Date of surgery: 08/06/2025
Surgeon: PRAVEEN Cortes MD
Preoperative diagnosis:
1. Genetic predisposition to breast cancer, BRCA
2. Status post bilateral mastectomy
3. Status post DENIS flap reconstruction
Postoperative diagnosis:
Same
Procedure:
1. Bilateral revisions to reconstructed breasts
2. Bilateral delayed insertion of silicone gel breast implants
3. Fat grafting to the bilateral breast, 180 cc total
4. Adjacent tissue transfer, trunk, 3 x 5 cm for dogear correction, left
Anesthesia: General
Complications: None
Implants: Sientra 220 cc low-profile high cohesive gel, bilateral
EBL: 30 cc
Indications for procedure: Patient is a 30-year-old female who previously underwent staged mastopexy followed by nipple sparing mastectomy and DENIS flap breast reconstruction for BRCA positivity. She developed bilateral seromas following her DENIS
flap breast reconstruction requiring excision. After a period of healing, she was left with contour irregularities and desired additional volume in her breast reconstruction. Options were reviewed at length including fat grafting, insertion of
silicone gel breast implants and she elected a combination approach. Risks of silicone gel breast implants were reviewed including capsular contracture, infection, ALCL, visibility, rupture,, wrinkling and rippling, need for additional procedures.
Risk of fat grafting reviewed including fat necrosis, oil cyst, skin contour irregularities and damage to deeper structures. Additional risks included the standard infection, hematoma, abnormal scarring. She understood these risks and desire to
proceed
Procedure in detail: Patient was identified preoperatively and the surgical site was confirmed to be the bilateral breast, bilateral flanks, medial thighs. Consents were confirmed and all questions were answered. Patient was taken back the
operating room placed upon on table. Anesthesia was induced the patient was prepped and draped in usual sterile fashion. A timeout for patient safety was performed was confirmed that bilateral SCDs were in place and preoperative antibiotics were
administered. Procedure began with the injection 1% lidocaine with epinephrine into the bilateral prior surgical incisions on the breast. Revision of the reconstructed breast were then performed bilaterally using a combination of substation and
sharp dissection mastectomy skin flap from the underlying breast flap. Additional rigotomies were performed internally to release any tethered scar tissue from the prior seromas. After achieving an adequate skin release, a pocket for
the breast implant was then dissected out. The patient previously selected a 220 cc low-profile silicone gel cohesive implant. Meticulous hemostasis was ensured and the breast implants were placed using a 'no touch' technique after donning new
gloves and using a Latif funnel. Double antibiotic solution and dilute Betadine were used to irrigate the pocket. Fat graft harvest was then performed after infiltrating tumescent solution to the bilateral flanks and medial thighs. Lipo aspirate
was processed using the pure graft system. A total of 180 cc of fat was available for grafting. This was distributed to fill any contour deformities and volume asymmetries. Attention was then drawn to the left abdominal donor site where a dogear
persisted. This was excised and adjacent tissue transfer was utilized with a rotation advancement after backcut in order to eliminate recurrent dogear. This was over an area approximately 3 x 5 cm. This was sutured in layers with 3-0 and 4-0
Monocryl. All access sites were closed with 5-0 fast and the bilateral breast incisions were also closed with 2-0 Vicryl followed by 3-0 and 4-0 Monocryl. Patient tolerated the procedure well was performed out complication. All counts were
correct at the end the case. Patient was extubated taken the PACU further care after dressing the wounds. Compression garments were placed.
[2025-08-06] MEDS: ZOFRAN 4 MG IV (17:20)
[2025-08-06] MEDS: MOTRIN 600 MG PO (17:24)
== END 2025-08-06 17:45 | disposition home or self-care (01) ==
LOC: SDS 06:02
PROVIDERS: ATTENDING PHYSICIAN Surgery Plastic and Reconstructive Surgery; FAMILY PHYSICIAN Family Medicine
DX: Z42.1 Encounter for breast reconstruction following mastectomy (principal); Z15.01 Genetic susceptibility to malignant neoplasm of breast; Z90.13 Acquired absence of bilateral breasts and nipples
CPT/HCPCS: 19342; 19380; 15771; 14001; 15772 ×2; 80053; 85025; 93005; C1729; C1789